=== PATIENT | female | born 1980 | race Caucasian/White ===

== ENCOUNTER → 2019-01-07 11:00 | Oncology outpatient (ONC) | payer OTHER, MEDICARE, SELFPAY ==
[2019-01-06] MEDS: KETOROLAC 30 MG/ML VIAL IV (11:40)
[2019-01-06 11:41] VITALS: BP 112/55; PULSE 84; RESP 16; TEMP 36.8; O2SAT 100
[2019-01-06] MEDS: diphenhydrAMINE 50 MG/ML VIAL IV (12:02)
[2019-01-06 12:21] VITALS: BP 112/55; PULSE 84
[2019-01-06] MEDS: PROCHLORPERAZINE 10 MG/2 ML VIAL IV (12:21)
[2019-01-06 12:51] VITALS: BP 112/61; PULSE 97
[2019-01-06] MEDS: DEXTROSE IV (12:52)
[2019-01-06] MEDS: NS IV (12:52)
[2019-01-06] MEDS: METHYLPREDNISOLONE IV (12:52)
[2019-01-07] MEDS: diphenhydrAMINE 50 MG/ML VIAL IV (13:30)
[2019-01-07 13:35] VITALS: BP 115/77; PULSE 91; RESP 16; TEMP 36.9; O2SAT 100
[2019-01-07] MEDS: KETOROLAC 30 MG/ML VIAL IV (13:42)
[2019-01-07 13:52] VITALS: BP 115/77; PULSE 91
[2019-01-07] MEDS: PROCHLORPERAZINE 10 MG/2 ML VIAL IV (13:52)
[2019-01-07] MEDS: DEXTROSE 5%-0.9% NS 1,000 ML 250 ML IV (13:56)
== END ==
PROVIDERS: PCP Family Medicine; Visit Provider Specialist
DX: G43.711 Chronic migraine without aura, intractable, with status migrainosus (principal); E86.9 Volume depletion, unspecified; R11.2 Nausea with vomiting, unspecified
CPT/HCPCS: 96361; 96365; 96366; 96375; J0780; J1200; J1885; J2930

== ENCOUNTER → 2019-04-01 10:16 | Outpatient (CLI) | payer OTHER, MEDICARE, SELFPAY ==
[2019-04-01 11:23] LABS: Alanine Aminotransferase 20 IU/L (9-52); Albumin 5.2 g/dL (3.5-5.0); Albumin Globulin Ratio 1.9 (1.0-2.8); Alkaline Phosphatase 48 U/L (38-126); Aspartate Aminotransferase 26 IU/L (14-36); BUN Creatinine Ratio 21.4 (6-22); Bilirubin Total 0.5 mg/dL (0.2-1.3); Blood Urea Nitrogen 15 mg/dL (7-17); Calcium 9.9 mg/dL (8.4-10.2); Carbon Dioxide 29 mmol/L (22-32); Chloride 103 mmol/L (98-107); Estimated Glomerular Filt Rate > 60.0 mL/min (>60); Globulin 2.8 g/dL (1.7-4.1); Glucose 121 mg/dL (70-100); HEMOLYSIS 25 (0-50); Potassium 4.3 mmol/L (3.4-5.1); Sodium 142 mmol/L (137-145)
== END ==
PROVIDERS: PCP Family Medicine; Visit Provider Family Medicine
DX: G43.111 Migraine with aura, intractable, with status migrainosus (principal)
CPT/HCPCS: 36415; 64405; 80053; 99214

== ENCOUNTER 2019-07-10 13:34 | Emergency (ER) | payer OTHER, MEDICARE, SELFPAY ==
[2019-07-10] VITALS (8 sets, daily range): BP systolic 95–119; BP diastolic 44–72; PULSE 77–117; RESP 14–16; TEMP 36.7; O2SAT 96–100; BMI 20.6
--- NOTE | 2019-07-10 14:02 | ED.HA ---
HPI - Headache General Chief Complaint: Headache Stated Complaint: MIGRAINE CYCLE Time Seen by Provider: 07/10/19 14:02 Source: patient Mode of arrival: Ambulatory Limitations: no limitations History of Present Illness HPI Narrative: Patient is a 39-year-old with history of migraines presenting with migraine headache. She said this 1 has been going on for 2 weeks worse over last few days she has not able eat or drink anything. She took Toradol IM this morning she has Compazine Zofran multiple other medications at home none of which have been successful at treating her migraine. She denies any neck pain or fevers. She is very sensitive to light. She does have some numbness on the left side of her face which she says she sometimes gets with migraine she has no weakness. She just needs S1 to break. Onset (ago): week(s) (2) Related Data Home Medications Medication Instructions Recorded Confirmed diphenhydramine HCl [Benadryl 50 mg PO Q6HP PRN #0 08/13/17 02/23/19 Allergy] ketorolac 10 mg PO TIDP PRN #0 08/13/17 02/23/19 methotrexate sodium [Trexall] 20 mg PO #0 08/13/17 02/23/19 promethazine 25 mg PO Q6HP PRN #0 08/13/17 02/23/19 [INFUSION] #0 12/19/17 02/23/19 secukinumab 150 mg/mL subcutaneous 150 mg SUBCUT ONCE 08/20/18 02/23/19 syringe methylphenidate HCl 10 mg tablet 10 mg PO DAILY 02/23/19 02/23/19 Previous Rx's Medication Instructions Recorded azdopqidtc-nuvmcqbefaxdq-zxbyhusi 1 - 2 tab PO TID PRN #20 08/20/18 50 mg-325 mg-40 mg tablet meperidine (PF) 100 mg/mL 100 mg IM .COMPLEX PRN #6 each 12/01/18 injection syringe promethazine 25 mg rectal 25 mg MN Q6HP PRN #10 supp 12/01/18 suppository indomethacin 25 mg capsule 25 mg PO TID PRN #30 cap 12/23/18 naratriptan 2.5 mg PO SEE INSTRUCTIONS PRN #18 01/04/19 tab meperidine (PF) 100 mg/mL 100 mg IM ONCE #10 ml 02/23/19 injection syringe rizatriptan 10 mg disintegrating See Rx Instructions PO .COMPLEX 04/01/19 tablet #10 tab fremanezumab-vfrm 225 mg/1.5 mL 225 mg SUBCUT QMONTH #1.5 ml 04/06/19 subcutaneous syringe naratriptan 2.5 mg tablet See Rx Instructions PO .COMPLEX 04/29/19 #10 tab hydrocodone 7.5 mg-acetaminophen 0.5 tab PO Q6-8H PRN #12 tab 05/18/19 325 mg tablet meperidine (PF) 100 mg/mL 100 mg IM ONCE PRN #10 ml 05/18/19 injection solution meperidine 100 mg/mL injection 50 mg IM Q6H PRN #6 ml 05/18/19 solution naratriptan 2.5 mg tablet See Rx Instructions PO .COMPLEX 05/18/19 #14 tab ondansetron 8 mg disintegrating 8 mg PO .COMPLEX PRN #20 tab 05/18/19 tablet butalbital 50 mg-acetaminophen 325 2 cap PO Q4H PRN #14 cap 06/30/19 mg-caffeine 40 mg-codeine 30 mg cap misoprostol 200 mcg tablet 200 mcg PO TID #90 tab 07/08/19 meperidine 100 mg tablet 100 mg PO Q6H PRN #4 tab 07/09/19 Allergies Allergy/AdvReac Type Severity Reaction Status Date / Time amoxicillin [AMOXICILLIN] Allergy Unknown Verified 07/10/19 13:51 Penicillins [PENICILLINS] Allergy Unknown Verified 07/10/19 13:51 Sulfa (Sulfonamide Allergy Unknown Verified 07/10/19 13:51 Antibiotics) [SULFA (SULFONAMIDE ANTIBIOTICS)] magnesium sulfate Allergy Verified 07/10/19 13:51 Review of Systems Review of Systems Narrative: GENERAL: Denies chills, fatigue, malaise, fever, sweats, travel HEENT: Denies sinus pain, ear pain, sore throat, difficulty swallowing, neck pain RESPIRATORY: Denies dyspnea, cough, wheezing, hemoptysis, sputum. CARDIOVASCULAR: Denies chest pain, palpitations, orthopnea, edema GASTROINTESTINAL: Denies nausea, vomiting, abdominal pain, diarrhea, constipation, melena. : Denies dysuria, frequency, incontinence, hematuria, urinary retention, flank pain. MUSCULOSKELETAL: Denies weakness, joint pain, or bony pain SKIN: No rash, no erythema, no pruritus NEUROLOGIC: See HPI PSYCHIATRIC: No concerning psychosocial issues. 12 point review of systems is negative except for those stated above and HPI [facility] Medical History Migraine (Acute) Social History Smoking Status: Never smoker Social History Smoking Status: Never smoker Exam Initial Vital Signs Initial Vital Signs: Vital Signs Temperature 98.1 F 07/10/19 13:51 Pulse Rate 87 07/10/19 13:51 Respiratory Rate 14 07/10/19 13:51 Blood Pressure 110/70 07/10/19 13:51 Pulse Oximetry 100 07/10/19 13:51 GENERAL: Wearing sunglasses in dark room controlled and position appears to not feel well HEENT: Head atraumatic,EOMI, pupils reactive, face symmetric, moist mucous membranes CARDIOVASCULAR: Regular rate and rhythm without murmurs, rubs or gallops. RESPIRATORY: Breath sounds equal bilaterally, no wheezes rales or rhonchi. ABDOMEN: Soft, nontender. Normoactive bowel sounds all 4 quadrants. No guarding or rebound. EXTREMITIES: Normal range of motion, no clubbing or edema. Neurovascularly intact NEUROLOGICAL: Alert and oriented x4.Normal gait and speech. [employer] Sunglasses strength equal bilaterally able to move toes SKIN: Warm, dry, no laceration, no petechiae, no rashes or lesions. Scores NIH Stroke Scale Level of Conciousness: Alert, keenly responsive Ask month/age: Answers both questions correctly. Open/close eyes, close hand: Performs both tasks correctly Best gaze horizontal: Normal Visual arenas: No visual loss Facial palsy: Normal symetrical movement Left arm drift: No drift for full 10 sec Right arm drift: No drift for full 10 sec Left leg drift: No drift for full 10 sec Right leg drift: No drift for full 10 sec Limb ataxia: Absent Sensory on face/arms/legs: Normal, no sensory loss Best language: No aphasia, normal Dysarthria: Normal Extinction or inattention: No abnormality Total NIH Stroke scale score: 0 Course Orders Ordered: Discontinued Medications Dexamethasone (Decadron) 10 mg IV NOW ONE Stop: 07/10/19 14:14 Last Admin: 07/10/19 15:05 Dose: 10 mg Documented by: SMICHEAU Diphenhydramine HCl (Benadryl) 25 mg IV NOW ONE Stop: 07/10/19 14:14 Last Admin: 07/10/19 15:03 Dose: 25 mg Documented by: CHRISTOPHER Hydromorphone HCl (Dilaudid) 1 mg IV NOW ONE Stop: 07/10/19 16:15 Last Admin: 07/10/19 16:25 Dose: 1 mg Documented by: CHRISTOPHER Hydromorphone HCl (Dilaudid) 0.5 mg IV NOW ONE Stop: 07/10/19 17:10 Last Admin: 07/10/19 17:31 Dose: 0.5 mg Documented by: CHRISTOPHER Hydromorphone HCl (Dilaudid) 0.5 mg IV NOW ONE Stop: 07/10/19 18:34 Last Admin: 07/10/19 18:47 Dose: 0.5 mg Documented by: CHRISTOPHER Sodium Chloride (Normal Saline 0.9%) 1,000 mls @ 1,000 mls/hr IV BOLUS ONE Stop: 07/10/19 15:12 Last Infusion: 07/10/19 19:17 Dose: 0 mls/hr Documented by: Admin: 07/10/19 15:14 Dose: 1,000 mls/hr Documented by: CHRISTOPHER Sodium Chloride (Normal Saline 0.9%) 1,000 mls @ 1,000 mls/hr IV BOLUS ONE Stop: 07/10/19 18:08 Last Infusion: 07/10/19 19:18 Dose: 0 mls/hr Documented by: Admin: 07/10/19 17:32 Dose: 1,000 mls/hr Documented by: CHRISTOPHER Ketorolac Tromethamine (Toradol) 15 mg IV NOW ONE Stop: 07/10/19 14:14 Last Admin: 07/10/19 15:01 Dose: 15 mg Documented by: CHRISTOPHER Prochlorperazine (Compazine) 10 mg IV NOW ONE Stop: 07/10/19 14:14 Last Admin: 07/10/19 15:09 Dose: 10 mg Documented by: CHRISTOPHER Vital Signs Vital signs: Vital Signs - 8 hr 07/10/19 13:51 Temperature 98.1 F Pulse Rate 87 Respiratory Rate 14 Blood Pressure 110/70 Pulse Oximetry 100 MDM - Headache Lab Data Attestation: I reviewed the patient's lab results. Result diagrams: 07/10/19 15:51 07/10/19 15:51 Labs: Lab Results 07/10/19 07/10/19 Range/Units 15:51 15:51 WBC 6.1 (4.5-11.0) X10^3/uL RBC 4.13 (4.0-5.2) X10^6/uL Hgb 13.0 (12.0-16.0) g/dL Hct 38.2 (36-46) % MCV 92.4 (80-100) fL MCH 31.5 (26-34) PG MCHC 34.1 (30-36) % RDW 12.6 (11.6-14.8) % Plt Count 243 (150-400) X10^3/uL Neut % (Auto) 65.8 (50-75) % Lymph % (Auto) 23.4 L (25-40) % Desha % (Auto) 7.2 (3-14) % Eos % (Auto) 3.1 (2-4) % Baso % (Auto) 0.5 (0-2) % Neut # (Auto) 4000 (5966-2831) /uL Lymph # (Auto) 1400 (1715-8966) /uL Desha # (Auto) 400 (0-900) /uL Eos # (Auto) 200 (0-450) /uL Baso # (Auto) 0 (0-100) /uL Sodium 140 (137-145) mmol/L Potassium 4.1 (3.4-5.1) mmol/L Chloride 104 (98-107) mmol/L Carbon Dioxide 27 (22-32) mmol/L BUN 14 (7-17) mg/dL Creatinine 0.70 (0.52-1.04) mg/dL Estimated GFR > 60.0 (>60) mL/min BUN/Creatinine Ratio 20.0 (6-22) Glucose 94 (70-100) mg/dL Calcium 9.1 (8.4-10.2) mg/dL Point of Care Testing Glucose POC 101 MDM Narrative Medical decision making narrative: The patient is overall feeling better but still having pain after the Toradol. She a 2nd L of fluid and Dilaudid. Feeling better when she sits up sharp pain returns. She is given no dose of Dilaudid a timely feels ready and able to go home. Her left facial numbness is something that she gets with migraines. She has no other focal deficits. This time I do not feel head CT is indicated. Discharge Plan Departure Patient Disposition: Home Clinical Impression: Migraine Qualifiers: Migraine type: without aura Status migrainosus presence: without status migrainosus Intractability: not intractable Qualified Code(s): G43.009 - Migraine without aura, not intractable, without status migrainosus Discharge Date/Time: 07/10/19 19:15 Instructions: DI for Migraine Activity Restrictions/Additional Instructions: *You have been diagnosed with migraine headache *What to do: Rest, increase fluids *Continue to take medications as directed *Follow up with your primary care provider in 2-3 days *Return to ER if you should have worsening headache persistent vomiting weakness numbness or tingling or any new, worsening or concerning symptoms Prescriptions: No Action methotrexate sodium [Trexall] 10 MG tablet 20 mg PO Qty: 0 RF: 0 ketorolac 10 MG tablet 10 mg PO TIDP PRNQty: 0 RF: 0 diphenhydramine HCl [Benadryl Allergy] 25 MG tablet 50 mg PO Q6HP PRNQty: 0 RF: 0 promethazine 25 MG tablet 25 mg PO Q6HP PRNQty: 0 RF: 0 [INFUSION] Qty: 0 RF: 0 indomethacin 25 mg capsule 25 mg PO TID PRN (Reason: headache) Qty: 30 RF: 11 naratriptan 2.5 mg tablet 2.5 mg PO SEE INSTRUCTIONS PRNQty: 18 RF: 11 Ajovy 225 mg/1.5 mL syringe 225 mg SUBCUT QMONTH Qty: 1.5 RF: 6 naratriptan [Amerge] 2.5 mg tablet See Rx Instructions PO .COMPLEX Qty: 10 RF: 2 hydrocodone-acetaminophen [[place]] 7.5-325 mg tablet 0.5 tab PO Q6-8H PRN (Reason: pain) Qty: 12 RF: 0 Demerol 100 mg/mL solution 50 mg IM Q6H PRN (Reason: pain) Qty: 6 RF: 0 naratriptan 2.5 mg tablet See Rx Instructions PO .COMPLEX Qty: 14 RF: 0 ondansetron [Zofran ODT] 8 mg tablet,disintegrating 8 mg PO .COMPLEX PRN (Reason: nausea) Qty: 20 RF: 2 meperidine (PF) [Demerol (PF)] 100 mg/mL solution 100 mg IM ONCE PRN (Reason: migraine headache) Qty: 10 RF: 0 misoprostol 200 mcg tablet 200 mcg PO TID Qty: 90 RF: 5 meperidine [Demerol] 100 mg tablet 100 mg PO Q6H PRN (Reason: pain) Qty: 4 RF: 0 secukinumab [Cosentyx] 150 mg/mL syringe 150 mg SUBCUT ONCE RF: 0 emrovnyatq-vcugnquncypcs-pozu 50-325-40 mg tablet 1 - 2 tab PO TID PRN (Reason: headache) Qty: 20 RF: 5 methylphenidate HCl [Ritalin] 10 mg tablet 10 mg PO DAILY RF: 0 Demerol (PF) 100 mg/mL syringe 100 mg IM ONCE Qty: 10 RF: 0 promethazine 25 mg suppository 25 mg MN Q6HP PRN (Reason: nausea and vomiting) Qty: 10 RF: 1 Demerol (PF) 100 mg/mL syringe 100 mg IM .COMPLEX PRN (Reason: migraine headache) Qty: 6 RF: 0 rizatriptan [Maxalt[employer]] 10 mg tablet,disintegrating See Rx Instructions PO .COMPLEX Qty: 10 RF: 2 sahtsaakzt-ditsskehzc-tcy-cod [id number] mg capsule 2 cap PO Q4H PRN (Reason: pain) Qty: 14 RF: 0 Referrals: Romeo Martinez MD [Primary Care Provider] -
[2019-07-10] MEDS: KETOROLAC 60 MG/2 ML VIAL 15 MG IV (15:01)
[2019-07-10] MEDS: diphenhydrAMINE 50 MG/ML VIAL 25 MG IV (15:03)
[2019-07-10] MEDS: DEXAMETHASONE 10 MG/ML VIAL IV (15:05)
[2019-07-10] MEDS: PROCHLORPERAZINE 10 MG/2 ML VIAL IV (15:09)
[2019-07-10] MEDS: SODIUM CHLORIDE 0.9% 1,000 ML 1000 ML IV ×2 (15:14→17:32)
[2019-07-10 15:55] LABS: Add Manual Diff / Slide Review NO; Basophils Absolute Auto 0 /uL (0-100); Basophils Percent Auto 0.5 % (0-2); Eosinophils Absolute Auto 200 /uL (0-450); Eosinophils Percent Auto 3.1 % (2-4); Hematocrit 38.2 % (36-46); Lymphocytes Absolute Auto 1400 /uL (1100-4500); Lymphocytes Percent Auto 23.4 % (25-40); Mean Corpuscular HGB Conc 34.1 % (30-36); Mean Corpuscular Hemoglobin 31.5 PG (26-34); Mean Corpuscular Volume 92.4 fL (80-100); Monocytes Absolute Auto 400 /uL (0-900); Monocytes Percent Auto 7.2 % (3-14); Neutrophils Absolute Auto 4000 /uL (1500-7000); Neutrophils Percent Auto 65.8 % (50-75); Platelet Count 243 X10^3/uL (150-400); Red Blood Cell Count 4.13 X10^6/uL (4.0-5.2); Red Cell Distribution Width 12.6 % (11.6-14.8); White Blood Cell Count 6.1 X10^3/uL (4.5-11.0)
[2019-07-10 16:18] LABS: Blood Urea Nitrogen 14 mg/dL (7-17); Calcium 9.1 mg/dL (8.4-10.2); Carbon Dioxide 27 mmol/L (22-32); Chloride 104 mmol/L (98-107); Estimated Glomerular Filt Rate > 60.0 mL/min (>60); Glucose 94 mg/dL (70-100); HEMOLYSIS 29 (0-50); Potassium 4.1 mmol/L (3.4-5.1); Sodium 140 mmol/L (137-145)
[2019-07-10] MEDS: HYDROMORPHONE 1 MG INJ IV (16:25)
[2019-07-10] MEDS: HYDROMORPHONE 0.5 MG INJ IV ×2 (17:31→18:47)
== END 2019-07-10 19:15 | disposition home or self-care (01) ==
PROVIDERS: Emergency Provider Emergency Medicine; PCP Family Medicine
DX: G43.009 Migraine without aura, not intractable, without status migrainosus (principal)
CPT/HCPCS: 36415; 80048; 82962; 85025; 96361; 96374; 96375; 96376; 99284; J0780; J1100; J1170; J1200; J1885

== ENCOUNTER → 2019-11-19 08:38 | Outpatient (CLI) | payer OTHER, MEDICARE, SELFPAY ==
--- NOTE | 2019-11-19 08:41 | DI.MRI.S_ITS ---
PROCEDURE: MR HEAD/BRAIN WO/W CON INDICATIONS: change in headaches. look at hypothalamus TECHNIQUE: Noncontrast axial T1 spin echo, axial T2 fast spin echo, sagittal and axial FLAIR, coronal T2 fast spin echo, axial gradient echo, axial diffusion and ADC through the brain. After the administration of contrast, axial and coronal 3D VIBE or T1 spin echo with fat saturation through the brain. COMPARISON: None. FINDINGS: Image quality: Excellent. CSF Spaces: Basal cisterns are patent. No extra-axial fluid collections. Ventricles are normal in size and shape. Brain: No midline shift. No intracranial bleeds or masses. Grossly unremarkable appearance of the hypothalamus, sellar and parasellar regions No abnormal intracranial enhancement. The brainstem appears normal. Diffusion-weighted images demonstrate no acute ischemic insults. No chronic ischemic insults. Normal intravascular flow voids are present. Skull and face: Calvarial marrow is normal in signal. Orbits appear normal. Sinuses: Sinuses and mastoids appear clear. IMPRESSION: Overall, unremarkable examination, including the region of the hypothalamus, and parasellar region. No abnormal enhancement Dictated by: Sebas Kamara M.D. on 11/19/2019 at 11:46 Approved by: Sebas Kamara M.D. on 11/19/2019 at 11:58
== END ==
PROVIDERS: PCP Family Medicine; Referring Provider Family Medicine; Visit Provider Family Medicine
DX: G44.039 Episodic paroxysmal hemicrania, not intractable (principal)
CPT/HCPCS: 70553

== ENCOUNTER 2020-03-07 11:53 | Emergency (ER) | payer OTHER, MEDICARE, SELFPAY ==
[2020-03-07 12:43] VITALS: BP 127/73; PULSE 88; RESP 13; TEMP 37; O2SAT 100
[2020-03-07 15:20] VITALS: BP 108/70; PULSE 90; RESP 16; O2SAT 99
[2020-03-07] MEDS: ONDANSETRON 4 MG ODT SL (15:29)
[2020-03-07] MEDS: KETOROLAC 60 MG/2 ML VIAL 30 MG IV (17:07)
[2020-03-07] MEDS: SODIUM CHLORIDE 0.9% 1,000 ML 1000 ML IV (17:07)
[2020-03-07] MEDS: DEXAMETHASONE 10 MG/ML VIAL IV (17:07)
[2020-03-07] MEDS: diphenhydrAMINE 50 MG/ML VIAL IV (17:08)
[2020-03-07 17:09] VITALS: BP 112/78; PULSE 80; RESP 12; O2SAT 100
[2020-03-07] MEDS: ONDANSETRON 4 MG/2 ML INJ (17:09)
[2020-03-07 17:52] VITALS: BP 110/64; PULSE 90; RESP 18; O2SAT 98
[2020-03-07] MEDS: HYDROMORPHONE 1 MG INJ IV ×2 (18:22→19:09)
[2020-03-07 19:17] VITALS: BP 110/72; PULSE 80; RESP 15; O2SAT 99
--- NOTE | 2020-03-07 19:53 | ED_ITS ---
HPI - Headache <Aarti Smith, DELINQUENT ACCOUNT CLERK-BC - Last Filed: 03/07/20 20:21> General Chief Complaint: Headache Stated Complaint: MIGRAINE/ REPEATING Time Seen by Provider: 03/07/20 15:27 Source: patient and family Mode of arrival: Ambulatory Limitations: no limitations History of Present Illness HPI Narrative: The patient is a 40-year-old female nonsmoker with history of migraines who presents with her spouse for a chief complaint of a migraine. She states that she has been Maxwell cluster headache cycle for the past several months and has been especially bad. She denies any abnormal thunderclap sensation, the she states that she has had them prior. She states that she has had an MRI recently. She reportedly has had some thunderclap sensations since the past 6 months or so. She denies any vomiting, complains of nausea. She complains of photophobia and phonophobia. She states that she has pain extending from the base of her neck up over her scar on her left side as well as a ?regular migraine on the right side.She has taken multiple medications at home including Toradol, indomethacin, subcutaneous injections, Benadryl etcetera. She has seen a headache specialist in the past. Related Data Home Medications Medication Instructions Recorded Confirmed diphenhydramine HCl [Benadryl 50 mg PO Q6HP PRN #0 08/13/17 12/07/19 Allergy] ketorolac 10 mg PO TIDP PRN #0 08/13/17 12/07/19 promethazine 25 mg PO Q6HP PRN #0 08/13/17 12/07/19 [INFUSION] #0 12/19/17 12/07/19 secukinumab 150 mg/mL subcutaneous 150 mg SUBCUT ONCE 08/20/18 12/07/19 syringe methylphenidate HCl 10 mg tablet 10 mg PO DAILY 02/23/19 12/07/19 methotrexate (PF) 10 mg/0.4 mL 20 mg SUBCUT QWEEK ml 11/11/19 12/07/19 subcutaneous auto-injector Previous Rx's Medication Instructions Recorded cpaeoodmkl-hjfaavnxidwmt-wkrkzpwf 1 - 2 tab PO TID PRN #20 08/20/18 50 mg-325 mg-40 mg tablet meperidine (PF) 100 mg/mL 100 mg IM .COMPLEX PRN #6 each 12/01/18 injection syringe promethazine 25 mg rectal 25 mg HI Q6HP PRN #10 supp 12/01/18 suppository indomethacin 25 mg capsule 25 mg PO TID PRN #30 cap 12/23/18 naratriptan 2.5 mg PO SEE INSTRUCTIONS PRN #18 01/04/19 tab meperidine (PF) 100 mg/mL 100 mg IM ONCE #10 ml 02/23/19 injection syringe rizatriptan 10 mg disintegrating See Rx Instructions PO .COMPLEX 04/01/19 tablet #10 tab naratriptan 2.5 mg tablet See Rx Instructions PO .COMPLEX 04/29/19 #10 tab hydrocodone 7.5 mg-acetaminophen 0.5 tab PO Q6-8H PRN #12 tab 05/18/19 325 mg tablet meperidine 100 mg/mL injection 50 mg IM Q6H PRN #6 ml 05/18/19 solution naratriptan 2.5 mg tablet See Rx Instructions PO .COMPLEX 05/18/19 #14 tab ondansetron 8 mg disintegrating 8 mg PO .COMPLEX PRN #20 tab 05/18/19 tablet butalbital 50 mg-acetaminophen 325 2 cap PO Q4H PRN #14 cap 06/30/19 mg-caffeine 40 mg-codeine 30 mg cap misoprostol 200 mcg tablet 200 mcg PO TID #90 tab 07/08/19 meperidine 100 mg tablet 100 mg PO Q6H PRN #4 tab 07/09/19 meperidine (PF) 100 mg/mL 100 mg IM ONCE PRN #4 ml 07/14/19 injection solution butalbital 50 mg-acetaminophen 325 1 cap PO Q4H PRN #30 cap 08/10/19 mg-caffeine 40 mg-codeine 30 mg cap indomethacin 25 mg capsule 50 mg PO TID #60 cap 08/10/19 meperidine 100 mg/mL injection 50 mg IM ONCE #20 ml 08/10/19 solution meperidine 100 mg/mL injection 50 mg IM ONCE #20 ml 08/10/19 solution naratriptan 2.5 mg tablet See Rx Instructions PO .COMPLEX 08/10/19 #72 tab naratriptan 2.5 mg tablet See Rx Instructions PO .COMPLEX #9 08/10/19 tab fremanezumab-vfrm 225 mg/1.5 mL 225 mg SUBCUT QMONTH #1.5 ml 10/25/19 subcutaneous syringe gxdvdusdvh-rikumnwycjgtd-mzqavhub 1 tab PO Q6H PRN #10 tab 11/11/19 50 mg-325 mg-40 mg tablet indomethacin 50 mg capsule 50 mg PO TID #90 cap 11/11/19 meperidine (PF) 100 mg/mL 100 mg IM Q6H PRN #10 ml 11/11/19 injection syringe misoprostol 200 mcg tablet 100 mcg PO QID #120 tab 11/11/19 yoylzbwkgd-pzxknotfktfpw-bmkgaasv 1 tab PO Q6H PRN #14 tab 12/07/19 50 mg-325 mg-40 mg tablet meperidine (PF) 100 mg/mL 100 mg IM ONCE #10 ml 12/07/19 injection syringe promethazine 25 mg rectal 25 mg HI Q6H PRN #12 each 12/07/19 suppository sumatriptan succinate 6 mg/0.5 mL 6 mg SUBCUT ONCE #1 ml 12/07/19 subcutaneous pen injector topiramate 50 mg capsule,extended 50 mg PO DAILY #90 cap 12/07/19 release 24 hr Allergies Allergy/AdvReac Type Severity Reaction Status Date / Time amoxicillin [AMOXICILLIN] Allergy Unknown Verified 03/07/20 17:14 Penicillins [PENICILLINS] Allergy Unknown Verified 03/07/20 17:14 Sulfa (Sulfonamide Allergy Unknown Verified 03/07/20 17:14 Antibiotics) [SULFA (SULFONAMIDE ANTIBIOTICS)] magnesium sulfate Allergy Verified 03/07/20 17:14 Review of Systems <JACOB ChowdhuryP- - Last Filed: 03/07/20 20:21> Review of Systems Narrative: GENERAL: Denies chills, fatigue, malaise, fever, sweats. HEENT: Denies sinus pain, ear pain, sore throat, difficulty swallowing, dizziness. RESPIRATORY: Denies dyspnea, cough, wheezing, hemoptysis, sputum. CARDIOVASCULAR: Denies chest pain, palpitations, orthopnea, edema, GASTROINTESTINAL: Denies nausea, vomiting, abdominal pain, diarrhea, constipation, melena. : Denies dysuria, frequency, incontinence, hematuria, urinary retention. MUSCULOSKELETAL: denies weakness, joint pain, or bony pain SKIN: Denies rash, skin lesions, or other NEUROLOGIC: See HPI PSYCHIATRIC: No concerning psychosocial issues. 12 point review of systems is negative except for those stated above Patient History <DIANA Chowdhury - Last Filed: 03/07/20 20:21> Medical History Migraine (Acute) Social History Smoking Status: Never smoker Smoking Status: Never smoker Substance Use Type: does not use Exam <DIANA Chowdhury - Last Filed: 03/07/20 20:21> Narrative Exam Narrative: GENERAL: This is a well-nourished, well-developed patient, appears uncomfortable HEAD: Atraumatic. Normocephalic. No temporal or scalp tenderness. EYES: Pupils equal round and reactive. Extraocular motions intact. No scleral icterus. No injection or drainage. ENT: Nose without bleeding, purulent drainage or septal hematoma. Throat without erythema, tonsillar hypertrophy or exudate. Uvula midline. Airway patent. NECK: Trachea midline. No JVD or lymphadenopathy. Supple, nontender, no meningeal signs. CARDIOVASCULAR: Regular rate and rhythm RESPIRATORY: Clear to auscultation. Breath sounds equal bilaterally. No wheezes, rales, or rhonchi. EXTREMITIES: No clubbing, cyanosis, or edema. No joint tenderness, effusion, or edema noted. BACK: Nontender without deformity or crepitance. No flank tenderness. NEURO: AOx3. Follows commands. Strength is equal upper and lower extremities bilaterally. Clear speech. No gross cranial nerve deficit. SKIN: No rash or erythema on visible skin Initial Vital Signs Initial Vital Signs: Vital Signs Temperature 98.6 F 03/07/20 12:43 Pulse Rate 88 03/07/20 12:43 Respiratory Rate 13 03/07/20 12:43 Blood Pressure 127/73 03/07/20 12:43 Pulse Oximetry 100 03/07/20 12:43 <Manas Leslie DO - Last Filed: 03/08/20 18:51> Initial Vital Signs Initial Vital Signs: Vital Signs Temperature 98.6 F 03/07/20 12:43 Pulse Rate 88 03/07/20 12:43 Respiratory Rate 13 03/07/20 12:43 Blood Pressure 127/73 03/07/20 12:43 Pulse Oximetry 100 03/07/20 12:43 Scores <DIANA Chowdhury - Last Filed: 03/07/20 20:21> GCS [place] coma scale eye opening: Spontaneous Kali coma scale verbal response: Orientated [place] coma scale motor response: Obey commands [place] coma scale total score: 15 Course <DIANA Chowdhury - Last Filed: 03/07/20 20:21> Orders Ordered: Discontinued Medications Dexamethasone (Decadron) 10 mg IV NOW ONE Stop: 03/07/20 15:50 Last Admin: 03/07/20 17:07 Dose: 10 mg Documented by: JOSÉ MIGUEL Diphenhydramine HCl (Benadryl) 50 mg IV NOW ONE Stop: 03/07/20 15:50 Last Admin: 03/07/20 17:08 Dose: 50 mg Documented by: JOSÉ MIGUEL Hydromorphone HCl (Dilaudid) 1 mg IV NOW ONE Stop: 03/07/20 18:01 Last Admin: 03/07/20 18:22 Dose: 1 mg Documented by: JOSÉ MIGUEL Hydromorphone HCl (Dilaudid) 1 mg IV NOW ONE Stop: 03/07/20 18:57 Last Admin: 03/07/20 19:09 Dose: 1 mg Documented by: JOSÉ MIGUEL Sodium Chloride (Normal Saline 0.9%) 1,000 mls @ 1,000 mls/hr IV BOLUS ONE Stop: 03/07/20 16:48 Last Infusion: 03/07/20 18:22 Dose: 0 mls/hr Documented by: JOSÉ IMGUEL Admin: 03/07/20 17:07 Dose: 1,000 mls/hr Documented by: JOSÉ MIGUEL Ketorolac Tromethamine (Toradol) 30 mg IV NOW ONE Stop: 03/07/20 15:50 Last Admin: 03/07/20 17:07 Dose: 30 mg Documented by: JOSÉ MIGUEL Ondansetron HCl (Zofran Odt) 4 mg SL NOW ONE Stop: 03/07/20 15:23 Last Admin: 03/07/20 15:29 Dose: 4 mg Documented by: TRAVIS Vital Signs Vital signs: Vital Signs - 8 hr 03/07/20 12:43 03/07/20 15:20 03/07/20 17:09 Temperature 98.6 F Pulse Rate 88 90 80 Respiratory Rate 13 16 12 Blood Pressure 127/73 Blood Pressure [Left Arm] 108/70 112/78 Pulse Oximetry 100 99 100 03/07/20 17:52 03/07/20 19:17 Temperature Pulse Rate 90 80 Respiratory Rate 18 15 Blood Pressure Blood Pressure [Left Arm] 110/64 110/72 Pulse Oximetry 98 99 <Manas Leslie, DO - Last Filed: 03/08/20 18:51> Orders Ordered: Discontinued Medications Dexamethasone (Decadron) 10 mg IV NOW ONE Stop: 03/07/20 15:50 Last Admin: 03/07/20 17:07 Dose: 10 mg Documented by: JOSÉ MIGUEL Diphenhydramine HCl (Benadryl) 50 mg IV NOW ONE Stop: 03/07/20 15:50 Last Admin: 03/07/20 17:08 Dose: 50 mg Documented by: JOSÉ MIGUEL Hydromorphone HCl (Dilaudid) 1 mg IV NOW ONE Stop: 03/07/20 18:01 Last Admin: 03/07/20 18:22 Dose: 1 mg Documented by: JOSÉ MIGUEL Hydromorphone HCl (Dilaudid) 1 mg IV NOW ONE Stop: 03/07/20 18:57 Last Admin: 03/07/20 19:09 Dose: 1 mg Documented by: JOSÉ MIGUEL Sodium Chloride (Normal Saline 0.9%) 1,000 mls @ 1,000 mls/hr IV BOLUS ONE Stop: 03/07/20 16:48 Last Infusion: 03/07/20 18:22 Dose: 0 mls/hr Documented by: JOSÉ MIGUEL Admin: 03/07/20 17:07 Dose: 1,000 mls/hr Documented by: JOSÉ MIGUEL Ketorolac Tromethamine (Toradol) 30 mg IV NOW ONE Stop: 03/07/20 15:50 Last Admin: 03/07/20 17:07 Dose: 30 mg Documented by: JOSÉ MIGUEL Ondansetron HCl (Zofran Odt) 4 mg SL NOW ONE Stop: 03/07/20 15:23 Last Admin: 03/07/20 15:29 Dose: 4 mg Documented by: TRAVIS Vital Signs Vital signs: Vital Signs - 8 hr 03/07/20 12:43 03/07/20 15:20 03/07/20 17:09 Temperature 98.6 F Pulse Rate 88 90 80 Respiratory Rate 13 16 12 Blood Pressure 127/73 Blood Pressure [Left Arm] 108/70 112/78 Pulse Oximetry 100 99 100 03/07/20 17:52 03/07/20 19:17 Temperature Pulse Rate 90 80 Respiratory Rate 18 15 Blood Pressure Blood Pressure [Left Arm] 110/64 110/72 Pulse Oximetry 98 99 MDM - Headache <GABRIEL Chowdhury-BC - Last Filed: 03/07/20 20:21> Lab Data Labs: Point of Care Testing Test Results Negative Urine Dip Bedside Urine Glucose Negative Bedside Urine Bilirubin - Negative Bedside Urine Ketone - Negative Urine Specific [place] 1.010 Bedside Urine Occult Blood + Bedside Urine pH 7.5 Bedside Urine Protein - Negative Bedside Urine Urobilinogen - Negative Bedside Urine Nitrite - Negative Bedside Urine Leukocytes - Negative Esterase MDM Narrative Medical decision making narrative: The patient is a 40-year-old female who presents with a chief complaint of a continued migraine and headache for the past several weeks. She has had a recent MRI which is negative. She feels much improved after the above-stated therapies, is requesting to go home. I discussed at length follow up with primary care provider as well as her headache provider. Discussed coming back to the ER for any acute concerns such as neurological deficit. Patient has no questions or concerns upon discharge and states understanding of return precautions as well as follow-up care. <Manas Leslie DO - Last Filed: 03/08/20 18:51> Lab Data Labs: Point of Care Testing Test Results Negative Urine Dip Bedside Urine Glucose Negative Bedside Urine Bilirubin - Negative Bedside Urine Ketone - Negative Urine Specific [place] 1.010 Bedside Urine Occult Blood + Bedside Urine pH 7.5 Bedside Urine Protein - Negative Bedside Urine Urobilinogen - Negative Bedside Urine Nitrite - Negative Bedside Urine Leukocytes - Negative Esterase Discharge Plan Departure Patient Disposition: Home Clinical Impression: Migraine Qualifiers: Migraine type: unspecified Status migrainosus presence: without status migrainosus Intractability: not intractable Qualified Code(s): G43.909 - Migraine, unspecified, not intractable, without status migrainosus Discharge Date/Time: 03/07/20 20:27 Instructions: DI for Migraine, DI for Hormonal and Tension Headaches, DI for Headache Activity Restrictions/Additional Instructions: Thank you for trusting us with your care today Please go home and rest. Please follow-up with primary care provider as well as your headache specialist in the next few days. Please come back to the emergency department for any acute concerns such as bello rological changes. Prescriptions: No Action ketorolac 10 MG tablet 10 mg PO TIDP PRNQty: 0 RF: 0 diphenhydramine HCl [Benadryl Allergy] 25 MG tablet 50 mg PO Q6HP PRNQty: 0 RF: 0 promethazine 25 MG tablet 25 mg PO Q6HP PRNQty: 0 RF: 0 [INFUSION] Qty: 0 RF: 0 indomethacin 25 mg capsule 25 mg PO TID PRN (Reason: headache) Qty: 30 RF: 11 naratriptan 2.5 mg tablet 2.5 mg PO SEE INSTRUCTIONS PRNQty: 18 RF: 11 naratriptan [Amerge] 2.5 mg tablet See Rx Instructions PO .COMPLEX Qty: 10 RF: 2 hydrocodone-acetaminophen [Apollo] 7.5-325 mg tablet 0.5 tab PO Q6-8H PRN (Reason: pain) Qty: 12 RF: 0 Demerol 100 mg/mL solution 50 mg IM Q6H PRN (Reason: pain) Qty: 6 RF: 0 naratriptan 2.5 mg tablet See Rx Instructions PO .COMPLEX Qty: 14 RF: 0 ondansetron [Zofran ODT] 8 mg tablet,disintegrating 8 mg PO .COMPLEX PRN (Reason: nausea) Qty: 20 RF: 2 misoprostol 200 mcg tablet 200 mcg PO TID Qty: 90 RF: 5 meperidine [Demerol] 100 mg tablet 100 mg PO Q6H PRN (Reason: pain) Qty: 4 RF: 0 meperidine (PF) [Demerol (PF)] 100 mg/mL solution 100 mg IM ONCE PRN (Reason: migraine headache) Qty: 4 RF: 0 Ajovy Syringe 225 mg/1.5 mL syringe 225 mg SUBCUT QMONTH Qty: 1.5 RF: 6 secukinumab [Cosentyx] 150 mg/mL syringe 150 mg SUBCUT ONCE RF: 0 ycghtqbkoo-lxaadawmruppr-azav 50-325-40 mg tablet 1 - 2 tab PO TID PRN (Reason: headache) Qty: 20 RF: 5 methylphenidate HCl [Ritalin] 10 mg tablet 10 mg PO DAILY RF: 0 Demerol (PF) 100 mg/mL syringe 100 mg IM ONCE Qty: 10 RF: 0 promethazine 25 mg suppository 25 mg HI Q6H PRN (Reason: nausea and vomiting) Qty: 12 RF: 2 sumatriptan succinate 6 mg/0.5 mL pen injector 6 mg SUBCUT ONCE Qty: 1 RF: 5 topiramate 50 mg capsule,extended release 24hr 50 mg PO DAILY Qty: 90 RF: 2 lmqrxvwpds-cqqojjwwxubzv-xggs 50-325-40 mg tablet 1 tab PO Q6H PRN (Reason: pain) Qty: 14 RF: 0 Demerol (PF) 100 mg/mL syringe 100 mg IM ONCE Qty: 10 RF: 0 promethazine 25 mg suppository 25 mg HI Q6HP PRN (Reason: nausea and vomiting) Qty: 10 RF: 1 Demerol (PF) 100 mg/mL syringe 100 mg IM .COMPLEX PRN (Reason: migraine headache) Qty: 6 RF: 0 rizatriptan [Maxalt-LANDSCAPE PAINTER] 10 mg tablet,disintegrating See Rx Instructions PO .COMPLEX Qty: 10 RF: 2 mzrzzvyygz-khiazjgklt-jpp-cod 10-739-56-30 mg capsule 2 cap PO Q4H PRN (Reason: pain) Qty: 14 RF: 0 indomethacin 25 mg capsule 50 mg PO TID Qty: 60 RF: 3 naratriptan [Amerge] 2.5 mg tablet See Rx Instructions PO .COMPLEX Qty: 9 RF: 3 naratriptan 2.5 mg tablet See Rx Instructions PO .COMPLEX Qty: 72 RF: 0 cxjvbvgdgi-yxnyxzzusx-qet-cod 34-651-85-30 mg capsule 1 cap PO Q4H PRN (Reason: pain) Qty: 30 RF: 0 Demerol 100 mg/mL solution 50 mg IM ONCE Qty: 20 RF: 0 Demerol 100 mg/mL solution 50 mg IM ONCE Qty: 20 RF: 0 methotrexate (PF) 10 mg/0.4 mL auto-injector 20 mg SUBCUT QWEEK RF: 0 Demerol (PF) 100 mg/mL syringe 100 mg IM Q6H PRN (Reason: pain) Qty: 10 RF: 0 iypcnzashc-brszivnjsvxpu-yfgq 50-325-40 mg tablet 1 tab PO Q6H PRN (Reason: pain) Qty: 10 RF: 0 indomethacin 50 mg capsule 50 mg PO TID Qty: 90 RF: 2 misoprostol 200 mcg tablet 100 mcg PO QID Qty: 120 RF: 2 Referrals: Romeo Martinez MD [Primary Care Provider] - <Manas Leslie DO - Last Filed: 03/08/20 18:51> Cosign ED Attending Cosignature Attestation: I was immediately available in the department for consultation. This docum entation has been reviewed and I agree with assessment and plan. Supervised by Manas Leslie DO
[2020-03-07 20:10] VITALS: BP 108/67; PULSE 74; RESP 16; O2SAT 99
== END 2020-03-07 20:27 | disposition home or self-care (01) ==
PROVIDERS: Emergency Provider Nurse Practitioner Family; PCP Family Medicine
DX: G43.909 Migraine, unspecified, not intractable, without status migrainosus (principal)
CPT/HCPCS: 81003; 81025; 96361; 96374; 96375; 96376; 99284; J1100; J1170; J1200; J1885; J2405

== ENCOUNTER 2020-06-11 10:46 | Emergency (ER) | payer OTHER, MEDICARE, SELFPAY ==
[2020-06-11] VITALS (18 sets, daily range): BP systolic 87–121; BP diastolic 50–75; PULSE 79–124; RESP 14–16; TEMP 36.3; O2SAT 95–100
--- NOTE | 2020-06-11 11:21 | ED_ITS ---
HPI - Headache General Chief Complaint: Headache Stated Complaint: Headache cycle Time Seen by Provider: 06/11/20 11:21 History of Present Illness HPI Narrative: 40-year-old woman with a long headache history with both cluster headaches migraine headaches and complex additional headaches followed with Neurology and headache clinics with an excellent understanding of disease pathophysiology and use of appropriate medications to control the headaches. They tend to come in clusters and she is 3 weeks into a severe cluster and today is the worst it has been and she is requesting help with pain alleviation. She is having no other acute neurologic symptoms aside from the headache, no fever no cough no chills, no chest pain no shortness of breath, mild nausea but no vomiting minimal oral intake feeling dehydrated, no diarrhea no rashes or skin changes. Related Data Home Medications Medication Instructions Recorded Confirmed diphenhydramine HCl [Benadryl 50 mg PO Q6HP PRN #0 08/13/17 12/07/19 Allergy] ketorolac 10 mg PO TIDP PRN #0 08/13/17 12/07/19 promethazine 25 mg PO Q6HP PRN #0 08/13/17 12/07/19 [INFUSION] #0 12/19/17 12/07/19 secukinumab 150 mg/mL subcutaneous 150 mg SUBCUT ONCE 08/20/18 12/07/19 syringe methylphenidate HCl 10 mg tablet 10 mg PO DAILY 02/23/19 12/07/19 methotrexate (PF) 10 mg/0.4 mL 20 mg SUBCUT QWEEK ml 11/11/19 12/07/19 subcutaneous auto-injector Previous Rx's Medication Instructions Recorded clbtfilkbq-nuxibygcmzxdj-fbhwanhb 1 - 2 tab PO TID PRN #20 08/20/18 50 mg-325 mg-40 mg tablet meperidine (PF) 100 mg/mL 100 mg IM .COMPLEX PRN #6 each 12/01/18 injection syringe promethazine 25 mg rectal 25 mg NV Q6HP PRN #10 supp 12/01/18 suppository indomethacin 25 mg capsule 25 mg PO TID PRN #30 cap 12/23/18 naratriptan 2.5 mg PO SEE INSTRUCTIONS PRN #18 01/04/19 tab meperidine (PF) 100 mg/mL 100 mg IM ONCE #10 ml 02/23/19 injection syringe rizatriptan 10 mg disintegrating See Rx Instructions PO .COMPLEX 04/01/19 tablet #10 tab naratriptan 2.5 mg tablet See Rx Instructions PO .COMPLEX 04/29/19 #10 tab hydrocodone 7.5 mg-acetaminophen 0.5 tab PO Q6-8H PRN #12 tab 05/18/19 325 mg tablet meperidine 100 mg/mL injection 50 mg IM Q6H PRN #6 ml 05/18/19 solution naratriptan 2.5 mg tablet See Rx Instructions PO .COMPLEX 05/18/19 #14 tab ondansetron 8 mg disintegrating 8 mg PO .COMPLEX PRN #20 tab 05/18/19 tablet butalbital 50 mg-acetaminophen 325 2 cap PO Q4H PRN #14 cap 06/30/19 mg-caffeine 40 mg-codeine 30 mg cap misoprostol 200 mcg tablet 200 mcg PO TID #90 tab 07/08/19 meperidine 100 mg tablet 100 mg PO Q6H PRN #4 tab 07/09/19 meperidine (PF) 100 mg/mL 100 mg IM ONCE PRN #4 ml 07/14/19 injection solution butalbital 50 mg-acetaminophen 325 1 cap PO Q4H PRN #30 cap 08/10/19 mg-caffeine 40 mg-codeine 30 mg cap indomethacin 25 mg capsule 50 mg PO TID #60 cap 08/10/19 meperidine 100 mg/mL injection 50 mg IM ONCE #20 ml 08/10/19 solution meperidine 100 mg/mL injection 50 mg IM ONCE #20 ml 08/10/19 solution naratriptan 2.5 mg tablet See Rx Instructions PO .COMPLEX 08/10/19 #72 tab naratriptan 2.5 mg tablet See Rx Instructions PO .COMPLEX #9 08/10/19 tab fremanezumab-vfrm 225 mg/1.5 mL 225 mg SUBCUT QMONTH #1.5 ml 10/25/19 subcutaneous syringe mhspkfyjjs-gddnhnrcjwabe-zkseokxu 1 tab PO Q6H PRN #10 tab 11/11/19 50 mg-325 mg-40 mg tablet indomethacin 50 mg capsule 50 mg PO TID #90 cap 11/11/19 meperidine (PF) 100 mg/mL 100 mg IM Q6H PRN #10 ml 01/30/20 injection syringe misoprostol 200 mcg tablet 100 mcg PO QID #120 tab 11/11/19 knrxipwfab-kwowencvvoqbm-ptytsxtm 1 tab PO Q6H PRN #14 tab 12/07/19 50 mg-325 mg-40 mg tablet meperidine (PF) 100 mg/mL 100 mg IM ONCE #10 ml 12/07/19 injection syringe promethazine 25 mg rectal 25 mg NV Q6H PRN #12 each 12/07/19 suppository sumatriptan succinate 6 mg/0.5 mL 6 mg SUBCUT ONCE #1 ml 12/07/19 subcutaneous pen injector topiramate 50 mg capsule,extended 50 mg PO DAILY #90 cap 12/07/19 release 24 hr Allergies Allergy/AdvReac Type Severity Reaction Status Date / Time amoxicillin [AMOXICILLIN] Allergy Unknown Verified 03/07/20 17:14 Penicillins [PENICILLINS] Allergy Unknown Verified 03/07/20 17:14 Sulfa (Sulfonamide Allergy Unknown Verified 03/07/20 17:14 Antibiotics) [SULFA (SULFONAMIDE ANTIBIOTICS)] magnesium sulfate Allergy Verified 03/07/20 17:14 Patient History Medical History (Updated 06/11/20 @ 16:32 by Vernell Becerril MD) Cluster headache (Acute) Migraine (Acute) Occipital neuralgia (Acute) Paroxysmal hemicrania (Acute) SUNCT (short unilateral neuralgiform headache, conjunctival inj/tear) (Acute) Social History Smoking Status: Never smoker Smoking Status: Never smoker Substance Use Type: does not use Exam Narrative Exam Narrative: General: Healthy appearing, in acute pain lying in a darkened room with sunglasses on. She is able to give a complete and coherent history. HEENT: Moist mucous membranes, normal sclera with reactive pupils, Neck: supple Respiratory: Lungs are clear to auscultation, no wheezing no rales no rhonchi. Full and symmetrical air movement Cardiac: Regular rate and rhythm no murmurs no bruits Abdomen: Soft nontender good bowel tones, no flank pain Skin: Warm and dry, no rashes Neurologic: Grossly neurologically intact with no obvious asymmetries or abnormalities Extremities: No trauma, well perfused Psych: Cooperative, appropriate insight and affect Initial Vital Signs Initial Vital Signs: Vital Signs Temperature 97.4 F L 06/11/20 11:02 Pulse Rate 124 H 06/11/20 11:02 Respiratory Rate 16 06/11/20 11:02 Blood Pressure 121/72 06/11/20 11:02 Pulse Oximetry 100 06/11/20 11:02 Procedures External Jugular line Right neck: Time Out Performed: Yes Skin Cleansed in Sterile Fashion: Yes Size (gauge): 20 IV Secured and Dressing Applied: Yes Additional Comments: After multiple peripheral IV attempts. Ultrasound- guided external jugular site is attempted and failed. Using ultrasound guidance peripheral line is placed into the internal jugular vein, right side without complication Course Orders Ordered: Discontinued Medications Dexamethasone (Decadron) 10 mg IV NOW ONE Stop: 06/11/20 11:31 Last Admin: 06/11/20 12:42 Dose: 10 mg Documented by: NEIL Diphenhydramine HCl (Benadryl) 25 mg IV NOW ONE Stop: 06/11/20 11:31 Last Admin: 06/11/20 12:42 Dose: 25 mg Documented by: NEIL Hydromorphone HCl (Dilaudid) 1 mg IV NOW ONE Stop: 06/11/20 14:34 Last Admin: 06/11/20 14:41 Dose: 1 mg Documented by: NEIL Hydromorphone HCl (Dilaudid) 1 mg IV NOW ONE Stop: 06/11/20 15:30 Last Admin: 06/11/20 15:38 Dose: 1 mg Documented by: NEIL Acetaminophen (Ofirmev) 1,000 mg in 100 mls @ 400 mls/hr IV NOW ONE Stop: 06/11/20 11:59 Last Infusion: 06/11/20 14:23 Dose: 0 mls/hr Documented by: Admin: 06/11/20 12:50 Dose: 400 mls/hr Documented by: NEIL Sodium Chloride (Normal Saline 0.9%) 1,000 mls @ 1,000 mls/hr IV BOLUS ONE Stop: 06/11/20 12:29 Last Infusion: 06/11/20 14:48 Dose: 0 mls/hr Documented by: Admin: 06/11/20 12:42 Dose: 1,000 mls/hr Documented by: NEIL Sodium Chloride (Normal Saline 0.9%) 1,000 mls @ 1,000 mls/hr IV BOLUS ONE Stop: 06/11/20 15:32 Last Infusion: 06/11/20 15:44 Dose: 0 mls/hr Documented by: Admin: 06/11/20 14:42 Dose: 1,000 mls/hr Documented by: NEIL Ketorolac Tromethamine (Toradol) 15 mg IV NOW ONE Stop: 06/11/20 11:31 Last Admin: 06/11/20 12:42 Dose: 15 mg Documented by: NEIL Prochlorperazine (Compazine) 10 mg IV NOW ONE Stop: 06/11/20 11:31 Last Admin: 06/11/20 12:42 Dose: 10 mg Documented by: NEIL Vital Signs Vital signs: Vital Signs - 8 hr 06/11/20 11:02 06/11/20 11:38 06/11/20 12:00 Temperature 97.4 F L Pulse Rate 124 H 90 93 H Respiratory Rate 16 Blood Pressure 121/72 Pulse Oximetry 100 100 100 06/11/20 12:10 06/11/20 12:30 06/11/20 12:42 Temperature Pulse Rate 93 H 95 H 95 H Respiratory Rate Blood Pressure 110/75 121/72 Pulse Oximetry 100 100 06/11/20 13:00 06/11/20 13:08 06/11/20 13:09 Temperature Pulse Rate 90 104 H 99 H Respiratory Rate Blood Pressure 90/52 L 87/50 L Pulse Oximetry 100 100 100 06/11/20 13:12 06/11/20 13:30 06/11/20 14:00 Temperature Pulse Rate 87 100 H Respiratory Rate Blood Pressure 93/54 L 99/61 104/58 L Pulse Oximetry 100 100 06/11/20 14:30 06/11/20 15:00 Temperature Pulse Rate 95 H 82 Respiratory Rate Blood Pressure 103/60 104/52 L Pulse Oximetry 99 97 MDM - Headache MDM Narrative Medical decision making narrative: 40-year-old woman with severe headache some response to fluids, Benadryl, Compazine, IV Toradol and IV acetaminophen. Certainly more relaxed but still complains of the stabbing cluster like component of the headache in the posterior left occiput. Will add narcotic to this mixture as well as a 2nd L of fluid. Patient feels that if the pain can be reduced a bit more she will be able to sleep after discharge. 425 headache feels like it is finally down to a 2-3 level and she sleep enough that she is very comfortable with discharge. Will recommend that she follow-up with her primary care physician as well as her headache specialists and neurologist. From her primary care physician I am going to suggest that she discuss the possibility of a Port-A-Cath as her vascular access is so challenging each time she presents for headaches or infusions of any kind. Safe for home discharge Discharge Plan Departure Patient Disposition: Home Clinical Impression: Headache Qualifiers: Headache type: unspecified Headache chronicity pattern: episodic headache Intractability: intractable Qualified Code(s): R51 - Headache Instructions: DI for Migraine Activity Restrictions/Additional Instructions: Thank you for coming in today From [facility] this headache has lasted so long has been so painful. In the emergency room today you received 2 L of fluid, IV Compazine, Toradol, Zofran, Tylenol and 2 mg of Dilaudid. We had an exceptionally difficult time getting to IV access and resorted to ultrasound guidance into some of the larger blood vessels in your neck. Given your chronic headaches intermittent infusions and recurrent need for IV access it may be worth talking about having a Port-A-Cath placed. Please discuss this with Dr. Dash. I hope you feel better. Prescriptions: No Action ketorolac 10 MG tablet 10 mg PO TIDP PRNQty: 0 RF: 0 diphenhydramine HCl [Benadryl Allergy] 25 MG tablet 50 mg PO Q6HP PRNQty: 0 RF: 0 promethazine 25 MG tablet 25 mg PO Q6HP PRNQty: 0 RF: 0 [INFUSION] Qty: 0 RF: 0 indomethacin 25 mg capsule 25 mg PO TID PRN (Reason: headache) Qty: 30 RF: 11 naratriptan 2.5 mg tablet 2.5 mg PO SEE INSTRUCTIONS PRNQty: 18 RF: 11 naratriptan [Amerge] 2.5 mg tablet See Rx Instructions PO .COMPLEX Qty: 10 RF: 2 hydrocodone-acetaminophen [Hughes] 7.5-325 mg tablet 0.5 tab PO Q6-8H PRN (Reason: pain) Qty: 12 RF: 0 Demerol 100 mg/mL solution 50 mg IM Q6H PRN (Reason: pain) Qty: 6 RF: 0 naratriptan 2.5 mg tablet See Rx Instructions PO .COMPLEX Qty: 14 RF: 0 ondansetron [Zofran ODT] 8 mg tablet,disintegrating 8 mg PO .COMPLEX PRN (Reason: nausea) Qty: 20 RF: 2 misoprostol 200 mcg tablet 200 mcg PO TID Qty: 90 RF: 5 meperidine [Demerol] 100 mg tablet 100 mg PO Q6H PRN (Reason: pain) Qty: 4 RF: 0 meperidine (PF) [Demerol (PF)] 100 mg/mL solution 100 mg IM ONCE PRN (Reason: migraine headache) Qty: 4 RF: 0 Ajovy Syringe 225 mg/1.5 mL syringe 225 mg SUBCUT QMONTH Qty: 1.5 RF: 6 secukinumab [Cosentyx] 150 mg/mL syringe 150 mg SUBCUT ONCE RF: 0 zbyuyhxmnk-dlewmzdtfprhi-kkvk 50-325-40 mg tablet 1 - 2 tab PO TID PRN (Reason: headache) Qty: 20 RF: 5 methylphenidate HCl [Ritalin] 10 mg tablet 10 mg PO DAILY RF: 0 Demerol (PF) 100 mg/mL syringe 100 mg IM ONCE Qty: 10 RF: 0 promethazine 25 mg suppository 25 mg NV Q6H PRN (Reason: nausea and vomiting) Qty: 12 RF: 2 sumatriptan succinate 6 mg/0.5 mL pen injector 6 mg SUBCUT ONCE Qty: 1 RF: 5 topiramate 50 mg capsule,extended release 24hr 50 mg PO DAILY Qty: 90 RF: 2 wlprqkllle-mwrghnmhkzfkq-zfnt 50-325-40 mg tablet 1 tab PO Q6H PRN (Reason: pain) Qty: 14 RF: 0 Demerol (PF) 100 mg/mL syringe 100 mg IM ONCE Qty: 10 RF: 0 promethazine 25 mg suppository 25 mg NV Q6HP PRN (Reason: nausea and vomiting) Qty: 10 RF: 1 Demerol (PF) 100 mg/mL syringe 100 mg IM .COMPLEX PRN (Reason: migraine headache) Qty: 6 RF: 0 rizatriptan [Maxalt-[employer]] 10 mg tablet,disintegrating See Rx Instructions PO .COMPLEX Qty: 10 RF: 2 rxepkqojlp-gspusuvnah-dsr-cod [id number] mg capsule 2 cap PO Q4H PRN (Reason: pain) Qty: 14 RF: 0 indomethacin 25 mg capsule 50 mg PO TID Qty: 60 RF: 3 naratriptan [Amerge] 2.5 mg tablet See Rx Instructions PO .COMPLEX Qty: 9 RF: 3 naratriptan 2.5 mg tablet See Rx Instructions PO .COMPLEX Qty: 72 RF: 0 zofsvuanny-hqfpywxzil-iun-cod [id number] mg capsule 1 cap PO Q4H PRN (Reason: pain) Qty: 30 RF: 0 Demerol 100 mg/mL solution 50 mg IM ONCE Qty: 20 RF: 0 Demerol 100 mg/mL solution 50 mg IM ONCE Qty: 20 RF: 0 methotrexate (PF) 10 mg/0.4 mL auto-injector 20 mg SUBCUT QWEEK RF: 0 Demerol (PF) 100 mg/mL syringe 100 mg IM Q6H PRN (Reason: pain) Qty: 10 RF: 0 bwftmmwccb-cflhkpamlsdpu-uptr 50-325-40 mg tablet 1 tab PO Q6H PRN (Reason: pain) Qty: 10 RF: 0 indomethacin 50 mg capsule 50 mg PO TID Qty: 90 RF: 2 misoprostol 200 mcg tablet 100 mcg PO QID Qty: 120 RF: 2 Referrals: Romeo Martinez MD [Primary Care Provider] -
[2020-06-11] MEDS: diphenhydrAMINE 50 MG/ML VIAL 25 MG IV (12:05)
[2020-06-11] MEDS: KETOROLAC 60 MG/2 ML VIAL 15 MG IV (12:06)
[2020-06-11] MEDS: PROCHLORPERAZINE 10 MG/2 ML VIAL IV (12:07)
[2020-06-11] MEDS: DEXAMETHASONE 10 MG/ML VIAL IV (12:07)
[2020-06-11] MEDS: SODIUM CHLORIDE 0.9% 1,000 ML 1000 ML IV ×2 (12:08→14:42)
[2020-06-11] MEDS: ACETAMINOPHEN IV 1,000 MG/100 ML VIAL 400 MG IV (12:50)
[2020-06-11] MEDS: HYDROMORPHONE 1 MG INJ IV ×2 (14:41→15:38)
== END 2020-06-11 16:56 | disposition home or self-care (01) ==
PROVIDERS: Emergency Provider Emergency Medicine; PCP Family Medicine
DX: G44.009 Cluster headache syndrome, unspecified, not intractable (principal)
CPT/HCPCS: 36569; 96365; 96366; 96375; 96376; 99283; 99284; J0131; J0780; J1100; J1170; J1200; J1885

== ENCOUNTER 2021-03-21 18:25 | Emergency (ER) | payer OTHER, MEDICARE, SELFPAY ==
[2021-03-21 18:30] VITALS: BP 113/69; PULSE 107; RESP 22; TEMP 37; O2SAT 100
[2021-03-21] MEDS: SODIUM CHLORIDE 0.9% 1,000 ML 1000 ML IV (20:24)
[2021-03-21] MEDS: ONDANSETRON 4 MG/2 ML INJ IV (20:26)
[2021-03-21] MEDS: diphenhydrAMINE 50 MG/ML VIAL IV (20:29)
[2021-03-21] MEDS: DEXAMETHASONE 10 MG/ML VIAL IV (20:31)
[2021-03-21] MEDS: KETOROLAC 30 MG/ML VIAL 15 MG IV (20:32)
[2021-03-21] MEDS: LIDOCAINE 1% 20 ML 10 ML INJ (20:36)
[2021-03-21 21:35] VITALS: BP 117/61; PULSE 83; RESP 18; O2SAT 100
[2021-03-21] MEDS: HYDROMORPHONE 0.5 MG INJ IV (22:00)
[2021-03-21 22:05] VITALS: PULSE 88; O2SAT 96
[2021-03-21 22:30] VITALS: BP 117/64; BP 140/84
[2021-03-21 23:00] VITALS: BP 115/63; PULSE 91; O2SAT 96
[2021-03-21] MEDS: HYDROMORPHONE 1 MG INJ IV (23:17)
[2021-03-21] MEDS: PROCHLORPERAZINE 10 MG/2 ML VIAL IV (23:18)
[2021-03-21 23:30] VITALS: BP 114/58; PULSE 77; O2SAT 92
[2021-03-22] VITALS: BP 107/55; PULSE 74; O2SAT 94
--- NOTE | 2021-03-22 00:14 | PC.NURSE ---
Stated relief from her h/a and facial symptoms.able to sleep she said,wants to go home.
--- NOTE | 2021-03-22 01:32 | ED_ITS ---
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 She states that her usual migraines are on the right side and currently it is left-sided headache pain starting behind her eye and radiating up in over her head down to her neck that is causing her the most problems. She notes that this headache has been present for 2-3 weeks and has responded somewhat to all of the medication she has available to her at home but today is getting significantly worse. 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 She has used Amerge prior to arrival. She takes daily indomethacin and also has available to her IM promethazine, Benadryl and Toradol. None of these have been effective. She describes no fevers, chills, cough, abdominal pain. She has been nauseated but has not actually vomited. No diarrhea. She complains of neck pain that she associates with her hemicranium continuing type headache but no nuchal rigidity or vision changes. Related Data Home Medications Medication Instructions Recorded Confirmed diphenhydramine HCl [Benadryl 50 mg PO Q6HP PRN #0 08/13/17 12/07/19 Allergy] ketorolac 10 mg PO TIDP PRN #0 08/13/17 12/07/19 promethazine 25 mg PO Q6HP PRN #0 08/13/17 12/07/19 [INFUSION] #0 12/19/17 12/07/19 secukinumab 150 mg/mL subcutaneous 150 mg SUBCUT ONCE 08/20/18 12/07/19 syringe methylphenidate HCl 10 mg tablet 10 mg PO DAILY 02/23/19 12/07/19 methotrexate (PF) 10 mg/0.4 mL 20 mg SUBCUT QWEEK ml 11/11/19 12/07/19 subcutaneous auto-injector Previous Rx's Medication Instructions Recorded eqaptxebzd-ooucaulubkinm-giacxbdw 1 - 2 tab PO TID PRN #20 08/20/18 50 mg-325 mg-40 mg tablet meperidine (PF) 100 mg/mL 100 mg IM .COMPLEX PRN #6 each 12/01/18 injection syringe promethazine 25 mg rectal 25 mg NE Q6HP PRN #10 supp 12/01/18 suppository indomethacin 25 mg capsule 25 mg PO TID PRN #30 cap 12/23/18 naratriptan 2.5 mg PO SEE INSTRUCTIONS PRN #18 01/04/19 tab meperidine (PF) 100 mg/mL 100 mg IM ONCE #10 ml 02/23/19 injection syringe rizatriptan 10 mg disintegrating See Rx Instructions PO .COMPLEX 04/01/19 tablet #10 tab naratriptan 2.5 mg tablet See Rx Instructions PO .COMPLEX 04/29/19 #10 tab hydrocodone 7.5 mg-acetaminophen 0.5 tab PO Q6-8H PRN #12 tab 05/18/19 325 mg tablet meperidine 100 mg/mL injection 50 mg IM Q6H PRN #6 ml 05/18/19 solution naratriptan 2.5 mg tablet See Rx Instructions PO .COMPLEX 05/18/19 #14 tab ondansetron 8 mg disintegrating 8 mg PO .COMPLEX PRN #20 tab 05/18/19 tablet butalbital 50 mg-acetaminophen 325 2 cap PO Q4H PRN #14 cap 06/30/19 mg-caffeine 40 mg-codeine 30 mg cap misoprostol 200 mcg tablet 200 mcg PO TID #90 tab 07/08/19 meperidine 100 mg tablet 100 mg PO Q6H PRN #4 tab 07/09/19 meperidine (PF) 100 mg/mL 100 mg IM ONCE PRN #4 ml 07/14/19 injection solution butalbital 50 mg-acetaminophen 325 1 cap PO Q4H PRN #30 cap 08/10/19 mg-caffeine 40 mg-codeine 30 mg cap indomethacin 25 mg capsule 50 mg PO TID #60 cap 08/10/19 meperidine 100 mg/mL injection 50 mg IM ONCE #20 ml 08/10/19 solution meperidine 100 mg/mL injection 50 mg IM ONCE #20 ml 08/10/19 solution naratriptan 2.5 mg tablet See Rx Instructions PO .COMPLEX 08/10/19 #72 tab naratriptan 2.5 mg tablet See Rx Instructions PO .COMPLEX #9 08/10/19 tab fremanezumab-vfrm 225 mg/1.5 mL 225 mg SUBCUT QMONTH #1.5 ml 10/25/19 subcutaneous syringe cxtmikwaye-rjpnuqirmzaah-gzyfraer 1 tab PO Q6H PRN #10 tab 11/11/19 50 mg-325 mg-40 mg tablet indomethacin 50 mg capsule 50 mg PO TID #90 cap 11/11/19 meperidine (PF) 100 mg/mL 100 mg IM Q6H PRN #10 ml 11/11/19 injection syringe misoprostol 200 mcg tablet 100 mcg PO QID #120 tab 11/11/19 klxxshtedd-uqpbpxapnlvlo-jmwamxgf 1 tab PO Q6H PRN #14 tab 12/07/19 50 mg-325 mg-40 mg tablet meperidine (PF) 100 mg/mL 100 mg IM ONCE #10 ml 12/07/19 injection syringe promethazine 25 mg rectal 25 mg NE Q6H PRN #12 each 12/07/19 suppository sumatriptan succinate 6 mg/0.5 mL 6 mg SUBCUT ONCE #1 ml 12/07/19 subcutaneous pen injector topiramate 50 mg capsule,extended 50 mg PO DAILY #90 cap 12/07/19 release 24 hr Allergies Allergy/AdvReac Type Severity Reaction Status Date / Time amoxicillin [AMOXICILLIN] Allergy Unknown Verified 03/07/20 17:14 Penicillins [PENICILLINS] Allergy Unknown Verified 03/07/20 17:14 Sulfa (Sulfonamide Allergy Unknown Verified 03/07/20 17:14 Antibiotics) [SULFA (SULFONAMIDE ANTIBIOTICS)] magnesium sulfate Allergy Verified 03/07/20 17:14 Review of Systems Review of Systems Narrative: Remainder of complete review of systems is otherwise unremarkable except for that included in the HPI. Patient History Medical History Cluster headache Migraine Occipital neuralgia Paroxysmal hemicrania SUNCT (short unilateral neuralgiform headache, conjunctival inj/tear) Social History Smoking Status: Never smoker Smoking Status: Never smoker Substance Use Type: does not use Exam Narrative Exam Narrative: General: Healthy appearing, in clear distress with her eyes covered and sitting in a darkened room Able to give a complete and coherent history. Well-nourished well-developed HEENT: Moist mucous membranes, normal sclera with reactive pupils, Neck: supple Respiratory: Lungs are clear to auscultation, no wheezing no rales no rhonchi. Full and symmetrical air movement Cardiac: Regular rate and rhythm no murmurs no bruits Abdomen: Soft, nontender, good bowel tones, no flank pain Skin: Warm and dry, no rashes Neurologic: Grossly neurologically intact with no obvious asymmetries or abnormalities Extremities: No trauma, well perfused Psych: Cooperative, appropriate insight and affect Initial Vital Signs Initial Vital Signs: Vital Signs Temperature 98.6 F 03/21/21 18:30 Pulse Rate 107 H 03/21/21 18:30 Respiratory Rate 22 03/21/21 18:30 Blood Pressure 113/69 03/21/21 18:30 Pulse Oximetry 100 03/21/21 18:30 Course Orders Ordered: Discontinued Medications Dexamethasone (Dexamethasone 10 Mg/Ml Vial) 10 mg IV NOW ONE Stop: 03/21/21 20:13 Last Admin: 03/21/21 20:31 Dose: 10 mg Documented by: JASMIN Diphenhydramine HCl (Diphenhydramine 50 Mg/Ml Vial) 50 mg IV NOW ONE Stop: 03/21/21 20:13 Last Admin: 03/21/21 20:29 Dose: 50 mg Documented by: JASMIN Heparin Sodium (Porcine) (Heparin 500 Unit/5 Ml Port Flush) 500 unit IV PRN PRN PRN Reason: Flush Last Admin: 03/22/21 00:29 Dose: 500 unit Documented by: KESHIA Hydromorphone HCl (Hydromorphone 0.5 Mg Inj) 0.5 mg IV NOW ONE Stop: 03/21/21 21:55 Last Admin: 03/21/21 22:00 Dose: 0.5 mg Documented by: JJ Hydromorphone HCl (Hydromorphone 1 Mg Inj) 1 mg IV NOW ONE Stop: 03/21/21 23:07 Last Admin: 03/21/21 23:17 Dose: 1 mg Documented by: JJ Sodium Chloride (Normal Saline 0.9%) 1,000 mls @ 1,000 mls/hr IV BOLUS ONE Stop: 03/21/21 21:11 Last Infusion: 03/21/21 21:43 Dose: 0 mls/hr Documented by: Admin: 03/21/21 20:24 Dose: 1,000 mls/hr Documented by: JASMIN Ketorolac Tromethamine (Ketorolac 30 Mg/Ml Vial) 15 mg IV NOW ONE Stop: 03/21/21 20:13 Last Admin: 03/21/21 20:32 Dose: 15 mg Documented by: JASMIN Lidocaine HCl (Lidocaine 1% 20 Ml) 10 ml INJ NOW ONE Stop: 03/21/21 20:13 Last Admin: 03/21/21 20:36 Dose: 10 ml Documented by: JASMIN Ondansetron HCl (Ondansetron 4 Mg/2 Ml Inj) 4 mg IV NOW ONE Stop: 03/21/21 20:13 Last Admin: 03/21/21 20:26 Dose: 4 mg Documented by: JASMIN Prochlorperazine (Prochlorperazine 10 Mg/2 Ml Vial) 10 mg IV NOW ONE Stop: 03/21/21 23:07 Last Admin: 03/21/21 23:18 Dose: 10 mg Documented by: JJ Vital Signs Vital signs: Vital Signs - 8 hr 03/21/21 18:30 03/21/21 21:35 03/21/21 22:05 Temperature 98.6 F Pulse Rate 107 H 83 88 Respiratory Rate 22 18 Blood Pressure 113/69 117/61 Pulse Oximetry 100 100 96 03/21/21 22:30 03/21/21 23:00 03/21/21 23:30 Temperature Pulse Rate 91 H 77 Respiratory Rate Blood Pressure 117/64 115/63 114/58 L Pulse Oximetry 96 92 03/22/21 00:00 Temperature Pulse Rate 74 Respiratory Rate Blood Pressure 107/55 L Pulse Oximetry 94 [facility] - Headache Medical Records Attestation: I reviewed the patient's medical records. [facility] Narrative Medical decision making narrative: 41-year-old woman with a history of significant headache persistent now for 2-3 weeks with significant worsening the last 24 hours. She notes that in the past IV fluids, Benadryl, steroids along with Compazine or Zofran and sometimes narcotics will typically help when she gets to this stage. She also notes that lidocaine injection into the occipital insertion area of the affected side has also been helpful in the past In the emergency room today she is given L of normal saline, IV Benadryl, IV Toradol, 10 mg of dexamethasone and Zofran. Her nausea was better but pain was minimally changed. She was given 0.5 mg of Dilaudid, Compazine and re- evaluated. Still significant pain. Additional single mg of Dilaudid and 10 mg of lidocaine injected into the left side, base of skull around the occipital insertion site at the point of maximal pain and tenderness. After the spinal interventions pain was controlled enough that she was able to doze off. On re- evaluation she felt moderately improved and has requested discharge home. Discharge Plan Departure Patient Disposition: Home Clinical Impression: Paroxysmal hemicrania Migraine Qualifiers: Migraine type: unspecified Status migrainosus presence: with status migrainosus Intractability: not intractable Qualified Code(s): G43.901 - Migraine, unspecified, not intractable, with status migrainosus Instructions: DI for Migraine Activity Restrictions/Additional Instructions: Thank you for coming in today I am sorry you are having such a difficult time with this current headache. In the ER today you received fluid, Zofran, IV Benadryl, IV Decadron(steroid), Toradol. When that was not effective in completely alleviating your pain we added 1.5 mg in total of the lot id as well as IV Compazine. I also did a 10 cc of 1% xylocaine injection at your left occipital insertion. I hope you are able to get some sleep tonight and wake up feeling better tomorrow Prescriptions: No Action ketorolac 10 MG tablet 10 mg PO TIDP PRNQty: 0 RF: 0 diphenhydramine HCl [Benadryl Allergy] 25 MG tablet 50 mg PO Q6HP PRNQty: 0 RF: 0 promethazine 25 MG tablet 25 mg PO Q6HP PRNQty: 0 RF: 0 [INFUSION] Qty: 0 RF: 0 indomethacin 25 mg capsule 25 mg PO TID PRN (Reason: headache) Qty: 30 RF: 11 naratriptan 2.5 mg tablet 2.5 mg PO SEE INSTRUCTIONS PRNQty: 18 RF: 11 naratriptan [Amerge] 2.5 mg tablet See Rx Instructions PO .COMPLEX Qty: 10 RF: 2 hydrocodone-acetaminophen [[place]] 7.5-325 mg tablet 0.5 tab PO Q6-8H PRN (Reason: pain) Qty: 12 RF: 0 Demerol 100 mg/mL solution 50 mg IM Q6H PRN (Reason: pain) Qty: 6 RF: 0 naratriptan 2.5 mg tablet See Rx Instructions PO .COMPLEX Qty: 14 RF: 0 ondansetron [Zofran ODT] 8 mg tablet,disintegrating 8 mg PO .COMPLEX PRN (Reason: nausea) Qty: 20 RF: 2 misoprostol 200 mcg tablet 200 mcg PO TID Qty: 90 RF: 5 meperidine [Demerol] 100 mg tablet 100 mg PO Q6H PRN (Reason: pain) Qty: 4 RF: 0 meperidine (PF) [Demerol (PF)] 100 mg/mL solution 100 mg IM ONCE PRN (Reason: migraine headache) Qty: 4 RF: 0 Ajovy Syringe 225 mg/1.5 mL syringe 225 mg SUBCUT QMONTH Qty: 1.5 RF: 6 secukinumab [Cosentyx] 150 mg/mL syringe 150 mg SUBCUT ONCE RF: 0 ghbyrzmtbk-sikvpvmknckrd-nqhy 50-325-40 mg tablet 1 - 2 tab PO TID PRN (Reason: headache) Qty: 20 RF: 5 methylphenidate HCl [Ritalin] 10 mg tablet 10 mg PO DAILY RF: 0 Demerol (PF) 100 mg/mL syringe 100 mg IM ONCE Qty: 10 RF: 0 promethazine 25 mg suppository 25 mg NE Q6H PRN (Reason: nausea and vomiting) Qty: 12 RF: 2 sumatriptan succinate 6 mg/0.5 mL pen injector 6 mg SUBCUT ONCE Qty: 1 RF: 5 topiramate 50 mg capsule,extended release 24hr 50 mg PO DAILY Qty: 90 RF: 2 rjtvbrpafo-uhecsaetvvpgp-tlek 50-325-40 mg tablet 1 tab PO Q6H PRN (Reason: pain) Qty: 14 RF: 0 Demerol (PF) 100 mg/mL syringe 100 mg IM ONCE Qty: 10 RF: 0 promethazine 25 mg suppository 25 mg NE Q6HP PRN (Reason: nausea and vomiting) Qty: 10 RF: 1 Demerol (PF) 100 mg/mL syringe 100 mg IM .COMPLEX PRN (Reason: migraine headache) Qty: 6 RF: 0 rizatriptan [Maxalt-[employer]IVER] 10 mg tablet,disintegrating See Rx Instructions PO .COMPLEX Qty: 10 RF: 2 ityanakiew-hieghyhgga-ijr-cod [id number] mg capsule 2 cap PO Q4H PRN (Reason: pain) Qty: 14 RF: 0 indomethacin 25 mg capsule 50 mg PO TID Qty: 60 RF: 3 naratriptan [Amerge] 2.5 mg tablet See Rx Instructions PO .COMPLEX Qty: 9 RF: 3 naratriptan 2.5 mg tablet See Rx Instructions PO .COMPLEX Qty: 72 RF: 0 mhbekvmitp-mgctnqiwod-ewj-cod [id number] mg capsule 1 cap PO Q4H PRN (Reason: pain) Qty: 30 RF: 0 Demerol 100 mg/mL solution 50 mg IM ONCE Qty: 20 RF: 0 Demerol 100 mg/mL solution 50 mg IM ONCE Qty: 20 RF: 0 methotrexate (PF) 10 mg/0.4 mL auto-injector 20 mg SUBCUT QWEEK RF: 0 Demerol (PF) 100 mg/mL syringe 100 mg IM Q6H PRN (Reason: pain) Qty: 10 RF: 0 grheimmqgz-bjuwttnysadem-pcno 50-325-40 mg tablet 1 tab PO Q6H PRN (Reason: pain) Qty: 10 RF: 0 indomethacin 50 mg capsule 50 mg PO TID Qty: 90 RF: 2 misoprostol 200 mcg tablet 100 mcg PO QID Qty: 120 RF: 2 Referrals: Romeo Martinez MD [Primary Care Provider] -
== END 2021-03-22 00:31 | disposition home or self-care (01) ==
PROVIDERS: Emergency Provider Emergency Medicine; PCP Family Medicine
DX: G43.901 Migraine, unspecified, not intractable, with status migrainosus (principal); G44.039 Episodic paroxysmal hemicrania, not intractable
CPT/HCPCS: 96361; 96374; 96375; 96376; 99284; J0780; J1100; J1170; J1200; J1642; J1885; J2405

== ENCOUNTER 2021-10-16 18:12 | Emergency (ER) | payer OTHER, MEDICARE, SELFPAY ==
[2021-10-16 18:22] VITALS: BP 115/74; PULSE 103; RESP 14; TEMP 36.3; O2SAT 100
[2021-10-16 21:23] VITALS: BP 118/67; PULSE 92; O2SAT 100
--- NOTE | 2021-10-16 21:26 | ED_ITS ---
HPI - Headache General Chief Complaint: Headache Stated Complaint: headache Time Seen by Provider: 10/16/21 21:07 Source: patient Mode of arrival: Wheelchair Limitations: no limitations History of Present Illness HPI Narrative: Patient is a 41-year-old female. Has a complicated neurologic history with issues with headaches. Is under the care of a neurologist and headache specialist at this [facility]. She is here for evaluation of left- sided neck discomfort and left-sided headache. It is been going on for the past several weeks if not longer. She did take multiple doses of her home medicatio ns earlier today with only minimal with any improvement from them. She stated that she was scheduled at the end of last year to have a procedure done with the nerves in her neck. She has not had this done secondary to issues with insurance approval. She contacted her neurologist to advised that she come to the emergency department for ?stabilization ?headache that she currently has has been present for the past several weeks. No trauma. Related Data Home Medications Medication Instructions Recorded Confirmed diphenhydramine HCl 25 mg tablet 50 mg PO Q6HP PRN #0 08/13/17 12/07/19 (Benadryl Allergy) ketorolac 10 mg tablet 10 mg PO TIDP PRN #0 08/13/17 12/07/19 promethazine 25 mg tablet 25 mg PO Q6HP PRN #0 08/13/17 12/07/19 [INFUSION] #0 12/19/17 12/07/19 secukinumab 150 mg/mL subcutaneous 150 mg SUBCUT ONCE 08/20/18 12/07/19 syringe (Cosentyx) methylphenidate HCl 10 mg tablet 10 mg PO DAILY 02/23/19 12/07/19 (Ritalin) methotrexate (PF) 10 mg/0.4 mL 20 mg SUBCUT QWEEK ml 11/11/19 12/07/19 subcutaneous auto-injector Previous Rx's Medication Instructions Recorded qjwshxdlez-leoutybyleaae-ojgkhpbt 1 - 2 tab PO TID PRN #20 08/20/18 50 mg-325 mg-40 mg tablet meperidine (PF) 100 mg/mL 100 mg IM .COMPLEX PRN #6 each 12/01/18 injection syringe (Demerol (PF)) promethazine 25 mg rectal 25 mg VT Q6HP PRN #10 supp 12/01/18 suppository indomethacin 25 mg capsule 25 mg PO TID PRN #30 cap 12/23/18 naratriptan 2.5 mg tablet 2.5 mg PO SEE INSTRUCTIONS PRN #18 01/04/19 tab meperidine (PF) 100 mg/mL 100 mg IM ONCE #10 ml 02/23/19 injection syringe (Demerol (PF)) rizatriptan 10 mg disintegrating See Rx Instructions PO .COMPLEX 04/01/19 tablet (Maxalt-STEAM BOX OPERATOR) #10 tab naratriptan 2.5 mg tablet (Amerge) See Rx Instructions PO .COMPLEX 04/29/19 #10 tab hydrocodone 7.5 mg-acetaminophen 0.5 tab PO Q6-8H PRN #12 tab 05/18/19 325 mg tablet (Providence) meperidine 100 mg/mL injection 50 mg (0.5 mL) IM Q6H PRN #6 ml 05/18/19 solution (Demerol) naratriptan 2.5 mg tablet See Rx Instructions PO .COMPLEX 05/18/19 #14 tab ondansetron 8 mg disintegrating 8 mg PO .COMPLEX PRN #20 tab 05/18/19 tablet (Zofran ODT) butalbital 50 mg-acetaminophen 325 2 cap PO Q4H PRN #14 cap 06/30/19 mg-caffeine 40 mg-codeine 30 mg cap misoprostol 200 mcg tablet 200 mcg PO TID #90 tab 07/08/19 meperidine 100 mg tablet (Demerol) 100 mg PO Q6H PRN #4 tab 07/09/19 meperidine (PF) 100 mg/mL 100 mg IM ONCE PRN #4 ml 07/14/19 injection solution (Demerol (PF)) butalbital 50 mg-acetaminophen 325 1 cap PO Q4H PRN #30 cap 08/10/19 mg-caffeine 40 mg-codeine 30 mg cap indomethacin 25 mg capsule 50 mg PO TID #60 cap 08/10/19 meperidine 100 mg/mL injection 50 mg (0.5 mL) IM ONCE #20 ml 08/10/19 solution (Demerol) meperidine 100 mg/mL injection 50 mg (0.5 mL) IM ONCE #20 ml 08/10/19 solution (Demerol) naratriptan 2.5 mg tablet See Rx Instructions PO .COMPLEX 08/10/19 #72 tab naratriptan 2.5 mg tablet (Amerge) See Rx Instructions PO .COMPLEX #9 08/10/19 tab fremanezumab-vfrm 225 mg/1.5 mL 225 mg (1.5 mL) SUBCUT QMONTH #1.5 10/25/19 subcutaneous syringe (Ajovy ml Syringe) jdzfrwtqbr-tslfttakqatwc-lnnizjye 1 tab PO Q6H PRN #10 tab 11/11/19 50 mg-325 mg-40 mg tablet indomethacin 50 mg capsule 50 mg PO TID #90 cap 11/11/19 meperidine (PF) 100 mg/mL 100 mg IM Q6H PRN #10 ml 11/11/19 injection syringe (Demerol (PF)) misoprostol 200 mcg tablet 100 mcg PO QID #120 tab 11/11/19 bzilpejoqn-vsrbkponbshxi-mqtsbpvq 1 tab PO Q6H PRN #14 tab 12/07/19 50 mg-325 mg-40 mg tablet meperidine (PF) 100 mg/mL 100 mg IM ONCE #10 ml 12/07/19 injection syringe (Demerol (PF)) promethazine 25 mg rectal 25 mg VT Q6H PRN #12 each 12/07/19 suppository sumatriptan succinate 6 mg/0.5 mL 6 mg (0.5 mL) SUBCUT ONCE #1 ml 12/07/19 subcutaneous pen injector topiramate 50 mg capsule,extended 50 mg PO DAILY #90 cap 12/07/19 release 24 hr Allergies Allergy/AdvReac Type Severity Reaction Status Date / Time amoxicillin [AMOXICILLIN] Allergy Unknown Verified 10/16/21 18:22 Penicillins [PENICILLINS] Allergy Unknown Verified 10/16/21 18:22 Sulfa (Sulfonamide Allergy Unknown Verified 10/16/21 18:22 Antibiotics) [SULFA (SULFONAMIDE ANTIBIOTICS)] magnesium sulfate Allergy Verified 10/16/21 18:22 Review of Systems Constitutional Constitutional: Denies fever(s) and Reports headache(s) Eyes Eyes: Reports photophobia ENT Ears, Nose, Mouth, and Throat: Reports headache(s) and Reports neck pain Cardiovascular Cardiovascular: Reports system reviewed and no additional complaints, except as documented Respiratory Respiratory: Reports system reviewed and no additional complaints, except as documented Gastrointestinal Gastrointestinal: Reports system reviewed and no additional complaints, except as documented Musculoskeletal Musculoskeletal: Reports neck pain Integumentary/Breasts Skin/Breast: Reports system reviewed and no additional complaints, except as documented Neurologic Neurologic: Reports system reviewed and no additional complaints, except as documented and Reports headache(s) Hematologic/Lymphatic On Anticoagulants: No Patient History Medical History Cluster headache Migraine Occipital neuralgia Paroxysmal hemicrania SUNCT (short unilateral neuralgiform headache, conjunctival inj/tear) Social History Smoking Status: Never smoker Smoking Status: Never smoker alcohol intake frequency: holidays/special occasions only Substance Use Type: does not use Exam Initial Vital Signs Initial Vital Signs: Vital Signs Temperature 97.3 F L 10/16/21 18:22 Pulse Rate 103 H 10/16/21 18:22 Respiratory Rate 14 10/16/21 18:22 Blood Pressure 115/74 10/16/21 18:22 Pulse Oximetry 100 10/16/21 18:22 HENMT Head: normal to inspection and normocephalic Resp Effort & Inspection: normal respiratory effort Cardio Rate: regular rate Back/Spine/Pelvis Cervical Spine: cervical muscular tenderness (Left side) Skin General: no rashes or lesions noted Neuro General: patient alert, patient awake, patient oriented x3 and moves all extremities Cognition: normal cognition Speech: speech normal Extrem General: normal to inspection Psych Appearance: grossly normal Course Orders Ordered: ED Orders 10/16/21 21:30 Complete Blood Count AUTO DIFF Stat Comprehensive Metabolic Panel Stat Lipase Stat 10/16/21 21:35 COVID19 -Nasal swab/Pre-Proc Stat Discontinued Medications Dexamethasone (Dexamethasone 10 Mg/Ml Vial) 10 mg IV NOW ONE Stop: 10/16/21 22:57 Last Admin: 10/16/21 23:01 Dose: 10 mg Documented by: PINEDA Diphenhydramine HCl (Diphenhydramine 50 Mg/Ml Vial) 25 mg IV NOW ONE Stop: 10/16/21 22:04 Last Admin: 10/16/21 22:09 Dose: 25 mg Documented by: PINEDA Hydromorphone HCl (Hydromorphone 1 Mg Inj) 1 mg IV NOW ONE Stop: 10/16/21 22:57 Last Admin: 10/16/21 23:02 Dose: 1 mg Documented by: PINEDA Sodium Chloride (Normal Saline 0.9%) 1,000 mls @ 1,000 mls/hr IV BOLUS ONE Stop: 10/16/21 23:02 Last Infusion: 10/16/21 23:39 Dose: 0 mls/hr Documented by: Admin: 10/16/21 22:14 Dose: 1,000 mls/hr Documented by: PINEDA Ketorolac Tromethamine (Ketorolac 30 Mg/Ml Vial) 30 mg IV NOW ONE Stop: 10/16/21 22:04 Last Admin: 10/16/21 22:10 Dose: 30 mg Documented by: PINEDA Lidocaine HCl (Lidocaine 1% (Pf)) 2 ml INJ NOW ONE Stop: 10/16/21 22:04 Last Admin: 10/16/21 22:11 Dose: 2 ml Documented by: PINEDA Prochlorperazine (Prochlorperazine 10 Mg/2 Ml Vial) 10 mg IV NOW ONE Stop: 10/16/21 22:04 Last Admin: 10/16/21 22:12 Dose: 10 mg Documented by: PINEDA Vital Signs Vital signs: Vital Signs - 8 hr 10/16/21 21:23 10/17/21 00:56 Pulse Rate 92 H 86 Respiratory Rate 16 Blood Pressure 118/67 92/54 L Pulse Oximetry 100 96 MDM - Headache Lab Data Attestation: I reviewed the patient's lab results. Result diagrams: 10/16/21 21:30 10/16/21 21:30 Labs: Lab Results 10/16/21 10/16/21 10/16/21 Range/Units 21:30 21:30 21:35 WBC 8.5 (4.5-11.0) X10^3/uL RBC 4.14 (4.0-5.2) X10^6/uL Hgb 12.9 (12.0-16.0) g/dL Hct 37.1 (36-46) % MCV 89.6 (80-100) fL MCH 31.2 (26-34) PG MCHC 34.8 (30-36) % RDW 12.8 (11.6-14.8) % Plt Count 274 (150-400) X10^3/uL Neut % (Auto) 54.8 (50-75) % Lymph % (Auto) 31.7 (25-40) % [place] % (Auto) 8.5 (3-14) % Eos % (Auto) 4.4 H (2-4) % Baso % (Auto) 0.6 (0-2) % Neut # (Auto) 4600 (4904-6756) /uL Lymph # (Auto) 2700 (3330-3639) /uL [place] # (Auto) 700 (0-900) /uL Eos # (Auto) 400 (0-450) /uL Baso # (Auto) 100 (0-100) /uL Sodium 139 (137-145) mmol/L Potassium 3.9 (3.4-5.1) mmol/L Chloride 106 (98-107) mmol/L Carbon Dioxide 28 (22-32) mmol/L BUN 23 H (7-17) mg/dL Creatinine 0.67 (0.52-1.04) mg/dL Estimated GFR > 60.0 (>60) mL/min BUN/Creatinine Ratio 34.3 H (6-22) Glucose 103 H (70-100) mg/dL Calcium 9.2 (8.4-10.2) mg/dL Total Bilirubin 0.2 (0.2-1.3) mg/dL AST 24 (14-36) IU/L ALT 17 (<35) IU/L Alkaline Phosphatase 45 (38-126) U/L Total Protein 7.2 (6.3-8.2) g/dL Albumin 4.3 (3.5-5.0) g/dL Globulin 2.9 (1.7-4.1) g/dL Albumin/Globulin Ratio 1.5 (1.0-2.8) Lipase 165 (23-300) U/L SARS-CoV-2 (PCR) Negative (Negative) MDM Narrative Medical decision making narrative: Current headache been there for the past several weeks. Was given multiple medications here in the emergency department and patient reports just some improvement of her headache. I did do a trigger point injection in her left occipital region with 2 cc of 1% lidocaine. I feel that we can hold on any radiologic studies for now based on her presentation. Unfortunately not much more we can offer her out of the emergency department for her chronic headaches. Informed her that she needed to contact her neurologist to discuss further workup specifically if she needed other pain management medications. She was given return precautions. She expressed understanding. Discharge Plan Departure Patient Disposition: Home Clinical Impression: Headache Instructions: DI for Headache Activity Restrictions/Additional Instructions: I am glad you are feeling somewhat better but I am sorry we cannot get you more comfortable. Unfortunately there is not much more to the emergency department that we can offer. I recommend that tomorrow you contact your neurologist/ headache specialist to discuss further workup and treatment. Return to the emergency department for any new symptoms. Prescriptions: No Action ketorolac 10 MG tablet 10 mg PO TIDP PRNQty: 0 0RF diphenhydramine HCl [Benadryl Allergy] 25 MG tablet 50 mg PO Q6HP PRNQty: 0 0RF promethazine 25 MG tablet 25 mg PO Q6HP PRNQty: 0 0RF [INFUSION] Qty: 0 0RF indomethacin 25 mg capsule 25 mg PO TID PRN (Reason: headache) Qty: 30 11RF Rx Instructions: Take 1-2 Capsules by mouth 3 times daily as needed for headache naratriptan 2.5 mg tablet 2.5 mg PO SEE INSTRUCTIONS PRNQty: 18 11RF naratriptan [Amerge] 2.5 mg tablet See Rx Instructions PO .COMPLEX Qty: 10 2RF Dose Instruction: take 1 tab at onset of headache; if no relief may repeat 1 tab in 4hr; max = 2 tabs/24 hrs PO Rx Instructions: take 1 tab at onset of headache; if no relief may repeat 1 tab in 4hr; max = 2 tabs/24 hrs PO hydrocodone-acetaminophen [Providence] 7.5-325 mg tablet 0.5 tab PO Q6-8H PRN (Reason: pain) Qty: 12 0RF Demerol 100 mg/mL solution 50 mg IM Q6H PRN (Reason: pain) Qty: 6 0RF naratriptan 2.5 mg tablet See Rx Instructions PO .COMPLEX Qty: 14 0RF Dose Instruction: take 1 tab at onset of headache; if no relief may repeat 1 tab in 4hr; max = 2 tabs/24 hrs PO Rx Instructions: take 1 tab at onset of headache; if no relief may repeat 1 tab in 4hr; max = 2 tabs/24 hrs PO ondansetron [Zofran ODT] 8 mg tablet,disintegrating 8 mg PO .COMPLEX PRN (Reason: nausea) Qty: 20 2RF Rx Instructions: 8 mg PO 1 every 8 hours PRN for nausea PRN; misoprostol 200 mcg tablet 200 mcg PO TID Qty: 90 5RF meperidine [Demerol] 100 mg tablet 100 mg PO Q6H PRN (Reason: pain) Qty: 4 0RF meperidine (PF) [Demerol (PF)] 100 mg/mL solution 100 mg IM ONCE PRN (Reason: migraine headache) Qty: 4 0RF Rx Instructions: use at onset of Migraine, may repeat in 2 hours if no relief, max 2 in 24 hours Ajovy Syringe 225 mg/1.5 mL syringe 225 mg SUBCUT QMONTH Qty: 1.5 6RF Rx Instructions: Inject 225mg SQ once monthly secukinumab [Cosentyx] 150 mg/mL syringe 150 mg SUBCUT ONCE 0RF gfcoguggii-psdrqqpjxjjam-claf 50-325-40 mg tablet 1 - 2 tab PO TID PRN (Reason: headache) Qty: 20 5RF methylphenidate HCl [Ritalin] 10 mg tablet 10 mg PO DAILY 0RF Demerol (PF) 100 mg/mL syringe 100 mg IM ONCE Qty: 10 0RF promethazine 25 mg suppository 25 mg VT Q6H PRN (Reason: nausea and vomiting) Qty: 12 2RF sumatriptan succinate 6 mg/0.5 mL pen injector 6 mg SUBCUT ONCE Qty: 1 5RF Rx Instructions: may repeat dose once in 1 hour if not relieved topiramate 50 mg capsule,extended release 24hr 50 mg PO DAILY Qty: 90 2RF Rx Instructions: After 7 days, 2 tablets. After another 7 more days, 3 tablets. qjwnmrdjjn-hjvoeccmqdnxw-zkxi 50-325-40 mg tablet 1 tab PO Q6H PRN (Reason: pain) Qty: 14 0RF Demerol (PF) 100 mg/mL syringe 100 mg IM ONCE Qty: 10 0RF Rx Instructions: administer 30 min prior to procedure promethazine 25 mg suppository 25 mg VT Q6HP PRN (Reason: nausea and vomiting) Qty: 10 1RF Demerol (PF) 100 mg/mL syringe 100 mg IM .COMPLEX PRN (Reason: migraine headache) Qty: 6 0RF Rx Instructions: 100 mg IM With severe headache. PRN; Up to three times per month. rizatriptan [Maxalt-STEAM BOX OPERATOR] 10 mg tablet,disintegrating See Rx Instructions PO .COMPLEX Qty: 10 2RF Dose Instruction: take 1 tab at onset of headache; if no relief may repeat 1 tab in 2hr; max = 3 tabs/day (24hr) PO Rx Instructions: take 1 tab at onset of headache; if no relief may repeat in 2-24 hours. replaces other triptans. jendevlcdd-dqytxovmau-jfe-cod [id number] mg capsule 2 cap PO Q4H PRN (Reason: pain) Qty: 14 0RF Rx Instructions: do not exceed 6 caps per day indomethacin 25 mg capsule 50 mg PO TID Qty: 60 3RF Rx Instructions: administer with food or milk and misoprostol naratriptan [Amerge] 2.5 mg tablet See Rx Instructions PO .COMPLEX Qty: 9 3RF Rx Instructions: take 1 tab at onset of headache; if no relief may repeat 1 tab in 4hr; max = 2 tabs/24 hrs PO naratriptan 2.5 mg tablet See Rx Instructions PO .COMPLEX Qty: 72 0RF Rx Instructions: take 1 tab at onset of headache; if no relief may repeat 1 tab in 4hr; max = 2 tabs/24 hrs PO bzgebqekwp-udoqjuetkn-kct-cod [id number] mg capsule 1 cap PO Q4H PRN (Reason: pain) Qty: 30 0RF Demerol 100 mg/mL solution 50 mg IM ONCE Qty: 20 0RF Demerol 100 mg/mL solution 50 mg IM ONCE Qty: 20 0RF methotrexate (PF) 10 mg/0.4 mL auto-injector 20 mg SUBCUT QWEEK 0RF Demerol (PF) 100 mg/mL syringe 100 mg IM Q6H PRN (Reason: pain) Qty: 10 0RF qfrardiwuj-xobohdgjccgmz-phob 50-325-40 mg tablet 1 tab PO Q6H PRN (Reason: pain) Qty: 10 0RF indomethacin 50 mg capsule 50 mg PO TID Qty: 90 2RF Rx Instructions: administer with food or milk misoprostol 200 mcg tablet 100 mcg PO QID Qty: 120 2RF Rx Instructions: administer with meals Referrals: Romeo Martinez MD [Primary Care Provider] -
[2021-10-16 21:47] LABS: Add Manual Diff / Slide Review NO; Basophils Absolute Auto 100 /uL (0-100); Basophils Percent Auto 0.6 % (0-2); Eosinophils Absolute Auto 400 /uL (0-450); Eosinophils Percent Auto 4.4 % (2-4); Hematocrit 37.1 % (36-46); Hemoglobin 12.9 g/dL (12.0-16.0); Lymphocytes Absolute Auto 2700 /uL (1100-4500); Lymphocytes Percent Auto 31.7 % (25-40); Mean Corpuscular HGB Conc 34.8 % (30-36); Mean Corpuscular Hemoglobin 31.2 PG (26-34); Mean Corpuscular Volume 89.6 fL (80-100); Monocytes Absolute Auto 700 /uL (0-900); Monocytes Percent Auto 8.5 % (3-14); Neutrophils Absolute Auto 4600 /uL (1500-7000); Neutrophils Percent Auto 54.8 % (50-75); Platelet Count 274 X10^3/uL (150-400); Red Blood Cell Count 4.14 X10^6/uL (4.0-5.2); Red Cell Distribution Width 12.8 % (11.6-14.8); White Blood Cell Count 8.5 X10^3/uL (4.5-11.0)
[2021-10-16 21:59] LABS: COVID19 -Nasal RAPID Negative (Negative)
[2021-10-16 22:03] LABS: Alanine Aminotransferase 17 IU/L (<35); Albumin 4.3 g/dL (3.5-5.0); Albumin Globulin Ratio 1.5 (1.0-2.8); Alkaline Phosphatase 45 U/L (38-126); Aspartate Aminotransferase 24 IU/L (14-36); BUN Creatinine Ratio 34.3 (6-22); Bilirubin Total 0.2 mg/dL (0.2-1.3); Blood Urea Nitrogen 23 mg/dL (7-17); Calcium 9.2 mg/dL (8.4-10.2); Carbon Dioxide 28 mmol/L (22-32); Chloride 106 mmol/L (98-107); Estimated Glomerular Filt Rate > 60.0 mL/min (>60); Globulin 2.9 g/dL (1.7-4.1); Glucose 103 mg/dL (70-100); HEMOLYSIS < 15 (0-50); Lipase 165 U/L (23-300); Potassium 3.9 mmol/L (3.4-5.1); Sodium 139 mmol/L (137-145); Total Protein 7.2 g/dL (6.3-8.2)
[2021-10-16] MEDS: diphenhydrAMINE 50 MG/ML VIAL 25 MG IV (22:09)
[2021-10-16] MEDS: KETOROLAC 30 MG/ML VIAL IV (22:10)
[2021-10-16] MEDS: LIDOCAINE 1% (PF) 2 ML INJ (22:11)
[2021-10-16] MEDS: PROCHLORPERAZINE 10 MG/2 ML VIAL IV (22:12)
[2021-10-16] MEDS: SODIUM CHLORIDE 0.9% 1,000 ML 1000 ML IV (22:14)
[2021-10-16] MEDS: DEXAMETHASONE 10 MG/ML VIAL IV (23:01)
[2021-10-16] MEDS: HYDROMORPHONE 1 MG INJ IV (23:02)
[2021-10-17 00:56] VITALS: BP 92/54; PULSE 86; RESP 16; O2SAT 96
== END 2021-10-17 00:57 | disposition home or self-care (01) ==
PROVIDERS: Emergency Provider Emergency Medicine; PCP Family Medicine
DX: R51.9 Headache, unspecified (principal); Z20.822 Contact with and (suspected) exposure to COVID-19
CPT/HCPCS: 36415; 80053; 83690; 85025; 87635; 96361; 96374; 96375; 99284; C9803; J0780; J1100; J1170; J1200; J1885

== ENCOUNTER 2023-07-30 15:38 | Emergency (ER) | payer OTHER, MEDICARE, SELFPAY ==
[2023-07-30] VITALS (14 sets, daily range): BP systolic 97–133; BP diastolic 53–78; PULSE 78–106; RESP 18–20; TEMP 36.9; O2SAT 94–100; BMI 22.6
--- NOTE | 2023-07-30 19:33 | ED.HA ---
HPI - Headache General Chief Complaint: Headache Stated Complaint: Migraine cluster T-14 Time Seen by Provider: 07/30/23 18:02 Mode of arrival: Ambulatory History of Present Illness HPI Narrative: 43-year-old female with history of very complex and chronic headache history presents with a chief complaint of gradually worsening headache that is largely generally intense and similar to prior migraine headaches. She is taken all of her typical abortive medications and states that she is scheduled for an ablation which generally helps. She states her pain is severe and worsened by bright lights and loud noise. She denies any fever or chills. She denies blurred vision or trouble with speech. She denies chest pain or shortness of breath. Related Data Home Medications Medication Instructions Recorded Confirmed diphenhydramine HCl 25 mg tablet 50 mg PO Q6HP PRN ##0 08/13/17 12/07/19 (Benadryl Allergy) ketorolac 10 mg tablet 10 mg PO TIDP PRN ##0 08/13/17 12/07/19 promethazine 25 mg tablet 25 mg PO Q6HP PRN ##0 08/13/17 12/07/19 [INFUSION] ##0 12/19/17 12/07/19 secukinumab 150 mg/mL subcutaneous 150 mg SUBCUT ONCE 08/20/18 12/07/19 syringe (Cosentyx) methylphenidate HCl 10 mg tablet 10 mg PO DAILY 02/23/19 12/07/19 (Ritalin) methotrexate (PF) 10 mg/0.4 mL 20 mg SUBCUT QWEEK 11/11/19 12/07/19 subcutaneous auto-injector Previous Rx's Medication Instructions Recorded iidypnuamp-jzxwrkqxbbmjm-cpglequa 1 - 2 tab PO TID PRN headache ##20 08/20/18 50 mg-325 mg-40 mg tablet meperidine (PF) 100 mg/mL 100 mg IM .COMPLEX PRN migraine 12/01/18 injection syringe (Demerol (PF)) headache #6 ea promethazine 25 mg rectal 25 mg AR Q6HP PRN nausea and 12/01/18 suppository vomiting #10 supp indomethacin 25 mg capsule 25 mg PO TID PRN headache #30 caps 12/23/18 naratriptan 2.5 mg tablet 2.5 mg PO SEE INSTRUCTIONS PRN #18 01/04/19 tabs meperidine (PF) 100 mg/mL 100 mg IM ONCE #10 mL 02/23/19 injection syringe (Demerol (PF)) rizatriptan 10 mg disintegrating See Rx Instructions PO .COMPLEX 04/01/19 tablet (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) #10 tabs naratriptan 2.5 mg tablet (Amerge) See Rx Instructions PO .COMPLEX 04/29/19 #10 tabs hydrocodone 7.5 mg-acetaminophen 0.5 tab PO Q6-8H PRN pain #12 tabs 05/18/19 325 mg tablet ([place]) meperidine 100 mg/mL injection 50 mg (0.5 mL) IM Q6H PRN pain #6 05/18/19 solution (Demerol) mL naratriptan 2.5 mg tablet See Rx Instructions PO .COMPLEX 05/18/19 #14 tabs ondansetron 8 mg disintegrating 8 mg PO .COMPLEX PRN nausea #20 05/18/19 tablet (Zofran ODT) tabs butalbital 50 mg-acetaminophen 325 2 cap PO Q4H PRN pain #14 caps 06/30/19 mg-caffeine 40 mg-codeine 30 mg cap misoprostol 200 mcg tablet 200 mcg PO TID #90 tabs 07/08/19 meperidine 100 mg tablet (Demerol) 100 mg PO Q6H PRN pain #4 tabs 07/09/19 meperidine (PF) 100 mg/mL 100 mg IM ONCE PRN migraine 07/14/19 injection solution (Demerol (PF)) headache #4 mL butalbital 50 mg-acetaminophen 325 1 cap PO Q4H PRN pain #30 caps 08/10/19 mg-caffeine 40 mg-codeine 30 mg cap indomethacin 25 mg capsule 50 mg (2 x 25 mg) PO TID #60 caps 08/10/19 meperidine 100 mg/mL injection 50 mg (0.5 mL) IM ONCE #20 mL 08/10/19 solution (Demerol) meperidine 100 mg/mL injection 50 mg (0.5 mL) IM ONCE #20 mL 08/10/19 solution (Demerol) naratriptan 2.5 mg tablet See Rx Instructions PO .COMPLEX 08/10/19 #72 tabs naratriptan 2.5 mg tablet (Amerge) See Rx Instructions PO .COMPLEX #9 08/10/19 tabs fremanezumab-vfrm 225 mg/1.5 mL 225 mg (1.5 mL) SUBCUT QMONTH #1.5 10/25/19 subcutaneous syringe (Ajovy mL Syringe) gjmadvhjew-gudndakwjggcw-zjmmvyvw 1 tab PO Q6H PRN pain #10 tabs 11/11/19 50 mg-325 mg-40 mg tablet indomethacin 50 mg capsule 50 mg PO TID #90 caps 11/11/19 meperidine (PF) 100 mg/mL 100 mg IM Q6H PRN pain #10 mL 11/11/19 injection syringe (Demerol (PF)) misoprostol 200 mcg tablet 100 mcg (1/2 x 200 mcg) PO QID 11/11/19 #120 tabs ogvvnveukb-eunnbahocnanu-lebwdres 1 tab PO Q6H PRN pain #14 tabs 12/07/19 50 mg-325 mg-40 mg tablet meperidine (PF) 100 mg/mL 100 mg IM ONCE #10 mL 12/07/19 injection syringe (Demerol (PF)) promethazine 25 mg rectal 25 mg AR Q6H PRN nausea and 12/07/19 suppository vomiting #12 ea sumatriptan succinate 6 mg/0.5 mL 6 mg (0.5 mL) SUBCUT ONCE #1 mL 12/07/19 subcutaneous pen injector topiramate 50 mg capsule,extended 50 mg PO DAILY #90 caps 12/07/19 release 24 hr Allergies Allergy/AdvReac Type Severity Reaction Status Date / Time amoxicillin [AMOXICILLIN] Allergy Unknown Verified 10/16/21 18:22 Penicillins [PENICILLINS] Allergy Unknown Verified 10/16/21 18:22 Sulfa (Sulfonamide Allergy Unknown Verified 10/16/21 18:22 Antibiotics) [SULFA (SULFONAMIDE ANTIBIOTICS)] magnesium sulfate Allergy Verified 10/16/21 18:22 Review of Systems Review of Systems Narrative: GENERAL: Denies chills, fatigue, malaise, fever, sweats. HEENT: Denies sinus pain, ear pain, sore throat, difficulty swallowing, dizziness. RESPIRATORY: Denies dyspnea, cough, wheezing, hemoptysis, sputum. CARDIOVASCULAR: Denies chest pain, palpitations, orthopnea, edema, GASTROINTESTINAL: Denies nausea, vomiting, abdominal pain, diarrhea, constipation, melena. : Denies dysuria, frequency, incontinence, hematuria, urinary retention. MUSCULOSKELETAL: denies weakness, joint pain, or bony pain SKIN: Denies rash, skin lesions, or other NEUROLOGIC: See HPI PSYCHIATRIC: No concerning psychosocial issues. 12 point review of systems is negative except for those stated above Patient History Medical History Cluster headache Migraine Occipital neuralgia Paroxysmal hemicrania SUNCT (short unilateral neuralgiform headache, conjunctival inj/tear) Social History Smoking Status: Never smoker Smoking Status: Never smoker alcohol intake frequency: holidays/special occasions only Substance Use Type: does not use Exam Narrative Exam Narrative: GENERAL: [43] year old patient appears stated age. Well-developed patient, in mild distress. Sitting in a dark room, rubbing her head HEAD: Atraumatic. Normocephalic. EYES: Pupils equal round and reactive. Extraocular motions intact. No scleral icterus. No injection or drainage. ENT: Nose without bleeding, purulent drainage. Throat without erythema, tonsillar hypertrophy or exudate. Airway patent. NECK: Trachea midline. Non tender CARDIOVASCULAR: Regular rate and rhythm without murmurs, gallops, or rubs. RESPIRATORY: Clear to auscultation. Breath sounds equal bilaterally. No wheezes, rales, or rhonchi. GASTROINTESTINAL: Abdomen soft, non-tender, nondistended. EXTREMITIES: No edema or joint tenderness. BACK: Nontender without deformity or crepitance. No flank tenderness. NEURO: AOx3. SKIN: No rash or erythema of visible areas Initial Vital Signs Initial Vital Signs: Vital Signs Temperature 98.4 F 07/30/23 15:40 Pulse Rate 104 H 07/30/23 15:40 Respiratory Rate 18 07/30/23 15:40 Blood Pressure 115/78 07/30/23 15:40 Pulse Oximetry 99 07/30/23 15:40 Oxygen Delivery Method Room Air 07/30/23 15:40 Course Orders Ordered: Discontinued Medications Dexamethasone (Dexamethasone 10 Mg/Ml Vial) 10 mg IV NOW ONE Stop: 07/30/23 19:34 Last Admin: 07/30/23 19:54 Dose: 10 mg Documented By: MAGALY Dihydroergotamine Mesylate (Dihydroergotamine 1 Mg/Ml Ampul) 0.5 mg IV NOW ONE Stop: 07/30/23 22:28 Last Admin: 07/30/23 22:34 Dose: 0.5 mg Documented By: MAGALY Diphenhydramine HCl (Diphenhydramine 50 Mg/Ml Vial) 25 mg IV NOW ONE Stop: 07/30/23 19:34 Last Admin: 07/30/23 19:50 Dose: 25 mg Documented By: MAGALY Hydromorphone HCl (Hydromorphone 1 Mg Inj) 1 mg IV NOW ONE Stop: 07/30/23 21:55 Last Admin: 07/30/23 22:01 Dose: 1 mg Documented By: MAGALY Hydromorphone HCl (Hydromorphone 1 Mg Inj) 1 mg IV NOW ONE Stop: 07/30/23 23:20 Last Admin: 07/30/23 23:23 Dose: 1 mg Documented By: MAGALY Sodium Chloride (Normal Saline 0.9%) 1,000 mls @ 1,000 mls/hr IV BOLUS ONE Stop: 07/30/23 20:32 Last Infusion: 07/30/23 20:53 Dose: Infused Documented By: Admin: 07/30/23 19:50 Dose: 1,000 mls/hr Documented By: MAGALY Ketorolac Tromethamine (Ketorolac 30 Mg/Ml Vial) 30 mg IV NOW ONE Stop: 07/30/23 19:34 Last Admin: 07/30/23 19:51 Dose: 30 mg Documented By: MAGALY Prochlorperazine (Prochlorperazine 10 Mg/2 Ml Vial) 10 mg IV NOW ONE Stop: 07/30/23 19:34 Last Admin: 07/30/23 19:56 Dose: 10 mg Documented By: MAGALY Reevaluation(s) Reevaluation #1: Patient feeling marked improvement after above-stated medications, she seemed particularly improved after DHE Vital Signs Vital signs: Vital Signs - 8 hr 07/30/23 19:04 07/30/23 19:56 07/30/23 19:57 Pulse Rate 104 H 97 H 96 H Respiratory Rate 20 Blood Pressure 133/69 107/77 Pulse Oximetry 99 100 Oxygen Delivery Method Room Air 07/30/23 20:00 07/30/23 20:00 07/30/23 20:30 Pulse Rate 106 H 78 Respiratory Rate Blood Pressure 115/62 115/62 Pulse Oximetry 100 99 Oxygen Delivery Method Room Air 07/30/23 20:30 07/30/23 21:00 07/30/23 21:00 Pulse Rate 80 Respiratory Rate Blood Pressure 99/58 L 97/53 L Pulse Oximetry 96 Oxygen Delivery Method Room Air 07/30/23 21:15 07/30/23 21:15 07/30/23 21:30 Pulse Rate 97 H 84 Respiratory Rate Blood Pressure 115/72 Pulse Oximetry 97 95 Oxygen Delivery Method 07/30/23 21:30 07/30/23 22:00 07/30/23 22:00 Pulse Rate 92 H Respiratory Rate 18 Blood Pressure 101/57 L 101/61 Pulse Oximetry 95 Oxygen Delivery Method 07/30/23 22:30 07/30/23 22:30 07/30/23 23:00 Pulse Rate 87 81 Respiratory Rate Blood Pressure 112/58 L Pulse Oximetry 94 95 Oxygen Delivery Method Room Air Room Air 07/30/23 23:00 07/30/23 23:30 07/30/23 23:30 Pulse Rate 81 Respiratory Rate Blood Pressure 124/68 124/65 Pulse Oximetry 94 Oxygen Delivery Method Room Air MDM - Headache Lab Data Labs: Point of Care Testing Glucose POC 74 MDM Narrative Medical decision making narrative: [43] year old patient presents with severe headache Headache considerations include, but not limited to: Subarachnoid hemorrhage, but unlikely as patient denies sudden onset of pain, not worst of life, or neck pain Meningitis considered, but thought unlikely given lack of Brudzinski's, Kernig's sign, altered mental status or fever Giant cell arteritis considered, but thought unlikely given lack of unilateral findings, pain in orthodox, vision change HTN Emergency considered, but thought unlikely given normal vitals Other serious diagnoses considered unlikely given lack of red flag findings such as sudden onset, increasing frequency, immunocompromise, systemic signs (fever, chills, stiff neck, or rash), focal neurologic findings, trauma, blood thinners, etc. Prior Charts reviewed in our EMR Primary Historian: patient Labs reviewed and interpreted by myself: Imaging reviewed: Consultations: Patient's symptoms improved over duration of stay with above-stated therapies. Findings and discharge diagnosis discussed with patient/family followed by verbalization of understanding Return precautions discussed with patient/family whom verbalize understanding of diagnosis and plan Discharge Plan Departure Patient Disposition: Home Clinical Impression: Headache Instructions: DI for Headache Activity Restrictions/Additional Instructions: *You have been diagnosed with [ Headache ] *What to do: *Take medications as directed *Follow up with your primary care provider in 2-3 days, call for an appointment. Let them know you were seen in the Emergency Department and that we ask that you be seen in follow up *Return to ER if you should have any new, worsening or concerning symptoms, such as [ fever > 101F, neck pain or stiffness, vomiting, confusion, seizure, focal weakness, vision change, speech deficit or other concerning symptoms ] Prescriptions: No Action ketorolac 10 MG tablet 10 mg PO TIDP PRNQty: 0 diphenhydramine HCl [Benadryl Allergy] 25 MG tablet 50 mg PO Q6HP PRNQty: 0 promethazine 25 MG tablet 25 mg PO Q6HP PRNQty: 0 [INFUSION] Qty: 0 indomethacin 25 mg capsule 25 mg PO TID PRN (Reason: headache) Qty: 30 11RF Rx Instructions: Take 1-2 Capsules by mouth 3 times daily as needed for headache naratriptan 2.5 mg tablet 2.5 mg PO SEE INSTRUCTIONS PRNQty: 18 11RF naratriptan [Amerge] 2.5 mg tablet See Rx Instructions PO .COMPLEX Qty: 10 2RF Dose Instruction: take 1 tab at onset of headache; if no relief may repeat 1 tab in 4hr; max = 2 tabs/24 hrs PO Rx Instructions: take 1 tab at onset of headache; if no relief may repeat 1 tab in 4hr; max = 2 tabs/24 hrs PO hydrocodone-acetaminophen [[place]] 7.5-325 mg tablet 0.5 tab PO Q6-8H PRN (Reason: pain) Qty: 12 0RF Demerol 100 mg/mL solution 50 mg IM Q6H PRN (Reason: pain) Qty: 6 0RF naratriptan 2.5 mg tablet See Rx Instructions PO .COMPLEX Qty: 14 0RF Dose Instruction: take 1 tab at onset of headache; if no relief may repeat 1 tab in 4hr; max = 2 tabs/24 hrs PO Rx Instructions: take 1 tab at onset of headache; if no relief may repeat 1 tab in 4hr; max = 2 tabs/24 hrs PO ondansetron [Zofran ODT] 8 mg tablet,disintegrating 8 mg PO .COMPLEX PRN (Reason: nausea) Qty: 20 2RF Rx Instructions: 8 mg PO 1 every 8 hours PRN for nausea PRN; misoprostol 200 mcg tablet 200 mcg PO TID Qty: 90 5RF meperidine [Demerol] 100 mg tablet 100 mg PO Q6H PRN (Reason: pain) Qty: 4 0RF meperidine (PF) [Demerol (PF)] 100 mg/mL solution 100 mg IM ONCE PRN (Reason: migraine headache) Qty: 4 0RF Rx Instructions: use at onset of Migraine, may repeat in 2 hours if no relief, max 2 in 24 hours Ajovy Syringe 225 mg/1.5 mL syringe 225 mg SUBCUT QMONTH Qty: 1.5 6RF Rx Instructions: Inject 225mg SQ once monthly secukinumab [Cosentyx] 150 mg/mL syringe 150 mg SUBCUT ONCE kggixcczlt-ixhyttcjddwgz-qewv 50-325-40 mg tablet 1 - 2 tab PO TID PRN (Reason: headache) Qty: 20 5RF methylphenidate HCl [Ritalin] 10 mg tablet 10 mg PO DAILY Demerol (PF) 100 mg/mL syringe 100 mg IM ONCE Qty: 10 0RF promethazine 25 mg suppository 25 mg AR Q6H PRN (Reason: nausea and vomiting) Qty: 12 2RF sumatriptan succinate 6 mg/0.5 mL pen injector 6 mg SUBCUT ONCE Qty: 1 5RF Rx Instructions: may repeat dose once in 1 hour if not relieved topiramate 50 mg capsule,extended release 24hr 50 mg PO DAILY Qty: 90 2RF Rx Instructions: After 7 days, 2 tablets. After another 7 more days, 3 tablets. xetxbgljvi-zceqdkinxxvkc-kwbk 50-325-40 mg tablet 1 tab PO Q6H PRN (Reason: pain) Qty: 14 0RF Demerol (PF) 100 mg/mL syringe 100 mg IM ONCE Qty: 10 0RF Rx Instructions: administer 30 min prior to procedure promethazine 25 mg suppository 25 mg AR Q6HP PRN (Reason: nausea and vomiting) Qty: 10 1RF Demerol (PF) 100 mg/mL syringe 100 mg IM .COMPLEX PRN (Reason: migraine headache) Qty: 6 0RF Rx Instructions: 100 mg IM With severe headache. PRN; Up to three times per month. 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 replaces other triptans. qfldnclubv-cpiwwwibab-xhn-cod 94-790-54-30 mg capsule 2 cap PO Q4H PRN (Reason: pain) Qty: 14 0RF Rx Instructions: do not exceed 6 caps per day indomethacin 25 mg capsule 50 mg PO TID Qty: 60 3RF Rx Instructions: administer with food or milk and misoprostol naratriptan [Amerge] 2.5 mg tablet See Rx Instructions PO .COMPLEX Qty: 9 3RF Rx Instructions: take 1 tab at onset of headache; if no relief may repeat 1 tab in 4hr; max = 2 tabs/24 hrs PO naratriptan 2.5 mg tablet See Rx Instructions PO .COMPLEX Qty: 72 0RF Rx Instructions: take 1 tab at onset of headache; if no relief may repeat 1 tab in 4hr; max = 2 tabs/24 hrs PO jpvpzxbugs-uawdqagnqe-syb-cod 05-377-50-30 mg capsule 1 cap PO Q4H PRN (Reason: pain) Qty: 30 0RF Demerol 100 mg/mL solution 50 mg IM ONCE Qty: 20 0RF Demerol 100 mg/mL solution 50 mg IM ONCE Qty: 20 0RF methotrexate (PF) 10 mg/0.4 mL auto-injector 20 mg SUBCUT QWEEK Demerol (PF) 100 mg/mL syringe 100 mg IM Q6H PRN (Reason: pain) Qty: 10 0RF ordmxntdka-iaaxyqhgdowlh-jugv 50-325-40 mg tablet 1 tab PO Q6H PRN (Reason: pain) Qty: 10 0RF indomethacin 50 mg capsule 50 mg PO TID Qty: 90 2RF Rx Instructions: administer with food or milk misoprostol 200 mcg tablet 100 mcg PO QID Qty: 120 2RF Rx Instructions: administer with meals Referrals: Romeo Martinez MD [Primary Care Provider] - Stand Alone Forms: Patient Portal/API
[2023-07-30] MEDS: diphenhydrAMINE 50 MG/ML VIAL 25 MG IV (19:50)
[2023-07-30] MEDS: SODIUM CHLORIDE 0.9% 1,000 ML 1000 ML IV (19:50)
[2023-07-30] MEDS: KETOROLAC 30 MG/ML VIAL IV (19:51)
[2023-07-30] MEDS: DEXAMETHASONE 10 MG/ML VIAL IV (19:54)
[2023-07-30] MEDS: PROCHLORPERAZINE 10 MG/2 ML VIAL IV (19:56)
[2023-07-30] MEDS: HYDROMORPHONE 1 MG INJ IV ×2 (22:01→23:23)
[2023-07-30] MEDS: DIHYDROERGOTAMINE 1 MG/ML AMPUL 0.5 MG IV (22:34)
== END 2023-07-30 23:58 | disposition home or self-care (01) ==
PROVIDERS: Emergency Provider Emergency Medicine; PCP Family Medicine
DX: R51.9 Headache, unspecified (principal); Z79.899 Other long term (current) drug therapy
CPT/HCPCS: 82962; 96361; 96374; 96375; 96376; 99283; 99284; J0780; J1100; J1110; J1170; J1200; J1885